=== PATIENT | female | born 1935 | race Caucasian/White ===

== ENCOUNTER → 2016-07-25 | Outpatient (CLI) | payer OTHER, MEDICARE ==
[~2016-07-25] MED LIST: ALLOPURINOL 10100 M1 PO; CIPRO250 M1 PO; COLCHICINE 0.60.6 M2 PO; COLCHICINE PO; COLCRYS0.6 MG PO; COUMADIN 1MG TAB1 M1 PO; COUMADIN 2 MG TA2 M1 PO; DIGITEK125 MC1 PO; FOSAMAX 35 MG35 M1 PO; HYZAAR 50-12.51 TAB PO; LASIX 20 MG TAB20 MG PO; LEVOTHYROXIN0.075 MG PO; LEVOTHYROXINE 0.1 MG PO; LEVOTHYROXINE0.05 MG PO; LEVOXYL75 MCG PO; LOVASTAT10 PO; LOVASTATIN 20 M20 MG PO; NORCO 5-325 TA1 EACH PO; POTASSIUM20 PO; PRESERVISION T1 EACH PO; SYNTHROID75 MCG PO; TOPROL XL25 MG PO; TOPROL XL50 MG PO; TRAMADOL 50 MG50 MG PO; VITAMIN D PO; VITAMIN D1000 UNI1 PO; ZOFRAN ODT4 MG PO
== END ==
LOC: RAD 11:06
DX: Z12.31 Encounter for screening mammogram for malignant neoplasm of breast (principal)

== ENCOUNTER → 2016-08-30 | Outpatient (CLI) | payer OTHER | LOC: RAD 10:27 | DX: J18.9 Pneumonia, unspecified organism (principal) ==

== ENCOUNTER 2016-10-03 09:57 | Inpatient (IN) | payer OTHER ==
[~2016-10-03] VITALS: Ht 157.5 cm; Wt 67.9 kg
--- NOTE | ~2016-10-03 | EKG ---
[address] [place] [address] ELECTROCARDIOGRAM REPORT Name: EDWIGE FOURNIER [facility] Room #: 305-P ADM IN M.R.#: [id number] Admission: 10/03/16 Attend Phys: Alicia Gibson Discharge: Date of : 31 Report #: [id number] THIS REPORT FOR: //name// [facility] ED Test Date: 2016-10-03 Test Time: 10:42:06 Pat Name: EDWIGE FOURNIER Department: Room: [facility] Gender: F Global Lead: [id number] : 1935 Requested By: Usama Linda Order Number: [id number] MD: Denys Muhammad Measurements Intervals [place] Rate: 68 P: 37 [place]: 84 QRS: 82 QRSD: 130 T: 261 QT: 506 QTc: 539 Interpretive Statements Atrial-ventricular dual-paced complexes No further analysis attempted due to paced rhythm Compared to ECG 11/29/2013 08:13:07 No significant changes Electronically Signed On 10-04-2016 8:48:41 CDT by Denys Muhammad [email or web address] <ELECTRONICALLY SIGNED> By: Denys Muhammad MD, [facility] 10/04/16 0848 1042 1042 Denys Muhammad MD, [facility] /EPI
--- NOTE | ~2016-10-03 | S ---
[facility] [address] [place] [address] SURGICAL PATH RPT PROCEDURE Name: JOANN FOURNIER [facility] Room #: 305-P DIS IN M.R.#: [id number] Admission: 10/03/16 Date of : 31 Discharge: 10/06/16 Report #: [id number] Path Case #: [id number] PATHOLOGY REPORT COLLECTION DATE: 10/05/2016 RECEIVED DATE: 10/05/2016 SUBMITTING PHYS: Dr. Leatha Jason OTHER PHYS: Dr. Tay Duncan SPECIMEN(S) RECEIVED: A.Duodenum bx B.Gastric bx C.Bx of gastric polyp D.Polyp at cecum x2 E.Bx of polyp at 10 cm F.Polyp at distal rectum x2 * * * * * * * * * * * * FINAL DIAGNOSIS: A. Small bowel mucosa, duodenum, endoscopic biopsy: - Moderate active peptic duodenitis. - Focal villous blunting present. - Negative for increase in intraepithelial lymphocytes. B. Gastric mucosa, gastric, endoscopic biopsy: - Mild reactive gastropathy with focal active gastritis. - Negative for intestinal metaplasia or atrophy. - Negative for Helicobacter pylori C. Polyp, gastric polyp, endoscopic biopsy: - Fundic gland polyp. - Negative for dysplasia. D. Polyp, cecum, endoscopic biopsy: - Few fragments showing tubular adenoma without high-grade dysplasia (inked blue). - One fragment showing serrated adenoma along with hyperplastic polyp without dysplasia (inked black). E. Polyp, at 10 cm, endoscopic biopsy: - Hyperplastic polyp. - Negative for dysplasia. F. Polyp, at distal rectum, endoscopic biopsy: - Superficial fragments of a tubular adenoma. - Negative for high-grade dysplasia. COMMENT: Helicobacter pylori immunohistochemical stain performed on block B1-negative. (IUV:pit; 10/07/2016) [address] [address] SURGICAL PATH RPT PROCEDURE Name: JOANN FOURNIER Room #: 305-P [facility] IN M.R.#: [id number] Admission: 10/03/16 Date of : 31 Discharge: 10/06/16 Report #: [id number] Path Case #: [id number] PATHOLOGIST: Ysabel Carver M.D. REPORT ELECTRONICALLY SIGNED BY: Ysabel Carver M.D. DATE/TIME: 10/07/2016 14:44 * * * * * * * * * * * * GROSS PATHOLOGY: A. Received in formalin labeled "Joann Fournier, BX duodenum," are 2 segments of mixon soft tissue measuring 0.7 x 0.2 x 0.2 cm in aggregate dimensions and ranging from 0.2 to 0.5 cm in maximum dimension. The specimen is submitted entirely in cassette A1. B. Received in formalin labeled "Joann Fournier, gastric BX," are 2 segments of mixon soft tissue measuring 1.0 x 0.2 x 0.2 cm in aggregate dimensions and ranging from 0.3 to 0.7 cm in maximum dimension. The specimen is submitted entirely in cassette B1. C. Received in formalin labeled "Rodrick Joann Ladonna, BX of gastric polyp," is a segment of mixon soft tissue measuring 0.4 x 0.3 x 0.2 cm in maximum dimension. The specimen is submitted entirely in cassette C1. D. Received in formalin labeled "Joann Fournier Ladonna, polyp at cecum," are 2 polypoid pieces of mixon soft tissue. The first polypoid piece of soft mixon tissue measures 0.9 x 0.7 x 0.6 cm in maximum dimension. The margin is inked black and the tissue is sectioned perpendicular to the margin. The second polypoid piece of soft mixon tissue measures 0.5 x 0.3 x 0.3 cm in maximum dimension. The margin is inked blue and the tissue is sectioned perpendicular to the margin. Everything is submitted in its entirety in cassette D1. E. Received in formalin labeled "ThierrymichealJoann, BX of polyp at 10 cm," is a 0.4 x 0.2 x 0.3 cm polypoid piece of mixon soft tissue. The margin is inked and the tissue is sectioned perpendicular to the margin. There is also a segment of mixon soft tissue measuring 0.3 x 0.2 cm in maximum dimension. Everything is submitted in its entirety in cassette E1. F. Received in formalin labeled "Rodrick Joann Ladonna, polyp at distal rectum," are 8 segments of mixon soft tissue measuring 2.1 x 0.4 x 0.2 cm in aggregate dimensions and ranging from less than 0.1 to 0.4 cm in maximum dimension. The specimen is submitted entirely in cassette F1. (DOUGLAS; 10/06/2016) CLINICAL HISTORY: Gastritis, gastric polyps, cecum polyp INITIAL CPT CODE(S): A; 57116 B; 85116, [address] [address] SURGICAL PATH RPT PROCEDURE Name: ESPERANZAWILMAMICHEALJOANN Room #: 305-P DIS IN M.R.#: [id number] Admission: 10/03/16 Date of : 31 Discharge: 10/06/16 Report #: [id number] Path Case #: [id number] C; [id number] D; [id number] E; [id number] F; [id number] Professional services performed by [facility] at [place] [address], [place] [address] Technical services performed by [facility] at [address] [place] [address], [facility] [address] [address]. [facility] [address] [place] [address] PHONE: [phone] DIRECTOR: Mayur Bautista M.D. * * * END OF REPORT * * *
[2016-10-03 10:19] VITALS: BP 127/42
[2016-10-03] MEDS ORDERED: XARELTO15 MG PO (10:47)
[2016-10-03 10:56] LABS: ABSOLUTE NEUTROPHILS 7.9 thou/uL (1.4-8.2); BASOPHILS 0.8 % (0.0-2.0); EOSINOPHILS 0.7 % (0.0-3.0); HEMATOCRIT 23.5 % (37.0-47.0); MCH 30.6 pg (26.0-34.0); MCHC 34.3 g/dL (28.0-37.0); MCV 89.1 fL (80.0-100.0); MONOCYTES 5.5 % (1.0-8.0); PLATELET COUNT 185 thou/uL (150-400); RBC 2.63 mil/uL (4.20-5.00); RDW 14.9 % (10.5-14.5); WBC 9.9 thou/uL (4.0-11.0)
[2016-10-03 11:09] LABS: CALCIUM 9.6 mg/dL (8.5-10.1); CREATININE 1.6 mg/dL (0.6-1.0); INR 1.3; PROTIME 12.9 Seconds (9.3-11.4)
[2016-10-03 11:11] LABS: ALBUMIN 3.2 g/dL (3.4-5.0); MANUAL DIFF NO; TOTAL BILIRUBIN 0.3 mg/dL (<0.1-1.0); TOTAL PROTEIN 6.2 g/dL (6.4-8.2)
[2016-10-03 13:19] LABS: URINE BILIRUBIN NEGATIVE (Negative); URINE BLOOD 3+ (Negative); URINE COLOR YELLOW; URINE GLUCOSE-RANDOM* NEGATIVE (Negative); URINE KETONES NEGATIVE (Negative); URINE NITRITE NEGATIVE (Negative); URINE PROTEIN (DIPSTICK) NEGATIVE (Negative); URINE UROBILINOGEN 0.2 E.U./dl (0.2-1.0)
[2016-10-03 13:22] VITALS: BP 126/49
[2016-10-03 13:29] LABS: SQUAMOUS 0-3 Few /LPF (0-3); URINE WBC 6-15 Few /HPF (0-5)
[2016-10-03 13:30] LABS: CASTS None Seen /LPF (None Seen); CRYSTALS None Seen /LPF (None Seen); URINE RBC 3-10 Few /HPF (0-2)
[2016-10-03 13:40] VITALS: BP 114/44
[2016-10-03 17:38] VITALS: BP 119/43
[2016-10-03 18:35] LABS: HEMATOCRIT 21.2 % (37.0-47.0); HEMOGLOBIN 7.2 gm/dL (12.0-15.0)
[2016-10-03 20:00] VITALS: BP 105/52
[2016-10-03 22:35] LABS: HEMOGLOBIN 6.1 gm/dL (12.0-15.0)
[2016-10-03 22:36] LABS: HEMATOCRIT 17.8 % (37.0-47.0)
[2016-10-03 23:49] VITALS: BP 100/63; BP 108/36
[2016-10-04 00:15] VITALS: BP 100/63
[2016-10-04 02:30] VITALS: BP 108/36; BP 109/39; BP 109/55
[2016-10-04 05:09] VITALS: BP 109/55
[2016-10-04 06:37] LABS: HEMATOCRIT 26.6 % (37.0-47.0); MCH 30.1 pg (26.0-34.0); MCHC 33.8 g/dL (28.0-37.0); MCV 89.2 fL (80.0-100.0); RBC 2.98 mil/uL (4.20-5.00); RDW 15.4 % (10.5-14.5)
[2016-10-04 06:57] LABS: CALCIUM 8.7 mg/dL (8.5-10.1); CREATININE 1.2 mg/dL (0.6-1.0); POTASSIUM 3.5 mmol/L (3.5-5.1)
[2016-10-04 07:48] VITALS: BP 140/72
[2016-10-04 10:48] LABS: HEMATOCRIT 26.9 % (37.0-47.0); HEMOGLOBIN 9.2 gm/dL (12.0-15.0)
[2016-10-04 14:31] LABS: HEMATOCRIT 25.5 % (37.0-47.0); HEMOGLOBIN 8.6 gm/dL (12.0-15.0)
[2016-10-04 15:30] VITALS: BP 124/53
[2016-10-04 18:31] LABS: HEMATOCRIT 26.4 % (37.0-47.0)
[2016-10-04 19:40] VITALS: BP 134/48
[2016-10-04 22:03] LABS: HEMATOCRIT 27.1 % (37.0-47.0); HEMOGLOBIN 9.1 gm/dL (12.0-15.0)
[2016-10-05 02:33] LABS: HEMATOCRIT 27.3 % (37.0-47.0); HEMOGLOBIN 9.3 gm/dL (12.0-15.0)
[2016-10-05 04:00] VITALS: BP 130/56
[2016-10-05 06:23] LABS: CALCIUM 9.1 mg/dL (8.5-10.1); CREATININE 1.1 mg/dL (0.6-1.0); POTASSIUM 3.5 mmol/L (3.5-5.1)
[2016-10-05 06:24] LABS: HEMATOCRIT 26.7 % (37.0-47.0); HEMOGLOBIN 9.2 gm/dL (12.0-15.0); MCH 30.7 pg (26.0-34.0); MCHC 34.5 g/dL (28.0-37.0); RDW 15.9 % (10.5-14.5); WBC 10.1 thou/uL (4.0-11.0)
[2016-10-05 07:18] VITALS: BP 137/47
[2016-10-05 07:45] VITALS: BP 137/47
[2016-10-05 17:04] VITALS: BP 155/65
[2016-10-05 17:53] LABS: HEMATOCRIT 27.5 % (37.0-47.0); HEMOGLOBIN 9.1 gm/dL (12.0-15.0)
[2016-10-05 19:40] VITALS: BP 100/48
[2016-10-06 00:22] VITALS: BP 100/48
[2016-10-06 03:30] VITALS: BP 116/69
[2016-10-06 05:35] LABS: HEMATOCRIT 27.3 % (37.0-47.0); HEMOGLOBIN 9.1 gm/dL (12.0-15.0)
[2016-10-06 08:00] VITALS: BP 110/50
[2016-10-06] MEDS ORDERED: METOPROLOL SUCC25 M1 PO (10:28)
[2016-10-06] MEDS ORDERED: DUONEB 2.5-0.5 M3 ML INH (10:28)
[2016-10-06] MEDS ORDERED: PROTONIX40 M1 PO (10:29)
[2016-10-06] MEDS ORDERED: LEVOTHYROXIN0.075 MG PO (10:55)
== END 2016-10-06 17:31 | DRG 377 ==
LOC: ER 09:57 → 3N 12:10 → EROBS 12:10 → 3N 13:36
PROVIDERS: Emergency Medicine; Internal Medicine; Internal Medicine Geriatric Medicine; Nurse Practitioner Adult Health
PROC: 30233N1 Transfusion of Nonautologous Red Blood Cells into Peripheral Vein, Percutaneous Approach (ICD-10-PCS; principal; 2016-10-03)
PROC: 0DB98ZX Excision of Duodenum, Via Natural or Artificial Opening Endoscopic, Diagnostic (ICD-10-PCS; 2016-10-05)
PROC: 0DB68ZX Excision of Stomach, Via Natural or Artificial Opening Endoscopic, Diagnostic (ICD-10-PCS; 2016-10-05)
PROC: 0DBP8ZZ Excision of Rectum, Via Natural or Artificial Opening Endoscopic (ICD-10-PCS; 2016-10-05)
PROC: 0DBH8ZZ Excision of Cecum, Via Natural or Artificial Opening Endoscopic (ICD-10-PCS; 2016-10-05)
DX: K26.4 Chronic or unspecified duodenal ulcer with hemorrhage (principal); I50.31 Acute diastolic (congestive) heart failure; N17.0 Acute kidney failure with tubular necrosis; Z96.89 Presence of other specified functional implants; E89.0 Postprocedural hypothyroidism; M10.9 Gout, unspecified; I48.91 Unspecified atrial fibrillation; I48.2 Chronic atrial fibrillation; I11.0 Hypertensive heart disease with heart failure; K21.9 Gastro-esophageal reflux disease without esophagitis; K63.5 Polyp of colon; Z90.49 Acquired absence of other specified parts of digestive tract; Z88.1 Allergy status to other antibiotic agents; Z88.0 Allergy status to penicillin; Z87.891 Personal history of nicotine dependence; Z79.01 Long term (current) use of anticoagulants; Z79.899 Other long term (current) drug therapy
CPT/HCPCS: 10096; 62110; 62900; 70005

== ENCOUNTER → 2016-10-26 | Outpatient (CLI) | payer OTHER ==
[~2016-10-26] MED LIST changes: +DUONEB 2.5-0.5 M3 ML INH; +METOPROLOL SUCC25 M1 PO; +PROTONIX40 M1 PO; +XARELTO15 MG PO
--- NOTE | ~2016-10-26 | P ---
[facility] [address] [place] [address] PROCEDURE REPORT Name: EDWIGE FOURNIER [facility] Room #: [facility] Renay#: [id number] Admission: 10/26/16 Attend Phys: Jean Holt MD Discharge: Date of : 33 Report #: [id number] THIS REPORT FOR: //name// CC: Jean Gallagher Jeffery DATE OF SERVICE: 10/26/2016 DATE OF SERVICE: 10/26/2016 PROCEDURE: M2 capsule endoscopy. INDICATIONS: An 81-year-old with history of atrial fibrillation, anticoagulation, who was admitted to [facility] late September 2016 with anemia and melena. EGD 10/03/2016 found small shallow nonbleeding duodenal bulb ulcers, coffee ground in the stomach. Biopsies were negative for H. Pylori. Colonoscopy to the terminal ileum found coffee grounds in the ileum, few small polyps and rare diverticula. An M2 capsule was recommended due to coffee ground and ileum. The patient ____ a gastric passage time 0 hours 4 minutes and small bowel passage time 1 hour 6 minutes. PROCEDURE INFORMATION AND FINDINGS: Normal M2 capsule endoscopy with an adequate prep. SUMMARY AND RECOMMENDATIONS: Clinical correlation is recommended. Continue ____ risks and benefits of anticoagulation with Cardiology and primary care doctor. <ELECTRONICALLY SIGNED> By: Jean Holt MD 12/06/16 1833 0853 1201 Jean Holt MD /nt
== END | disposition home or self-care (01) ==
LOC: GI 08:25
DX: I48.91 Unspecified atrial fibrillation (principal)

== ENCOUNTER → 2017-04-26 | Outpatient (CLI) | payer OTHER | LOC: RAD 17:07 | DX: J41.0 Simple chronic bronchitis (principal) ==

== ENCOUNTER → 2017-07-31 | Outpatient (CLI) | payer OTHER | LOC: RAD 16:30 | DX: J98.11 Atelectasis (principal); M41.84 Other forms of scoliosis, thoracic region; M47.894 Other spondylosis, thoracic region; Z95.0 Presence of cardiac pacemaker ==

== ENCOUNTER → 2017-08-08 | Outpatient (CLI) | payer OTHER | LOC: RAD 00:44 | DX: Z12.31 Encounter for screening mammogram for malignant neoplasm of breast (principal) ==

== ENCOUNTER → 2017-08-23 | Outpatient (CLI) | payer OTHER | LOC: RAD 07:05 | DX: K21.0 Gastro-esophageal reflux disease with esophagitis (principal); I51.7 Cardiomegaly; J98.11 Atelectasis ==

== ENCOUNTER 2018-01-25 22:54 | Emergency (ER) | payer OTHER ==
[~2018-01-25] VITALS: Ht 157.5 cm; Wt 64.9 kg
[2018-01-25 23:23] LABS: INR 1.7; PROTIME 18.1 Seconds (9.3-11.4)
[2018-01-25] MEDS ORDERED: ALLOPURINOL 10100 M2 PO (23:33)
[2018-01-25] MEDS ORDERED: CRANBERRY425 MG PO (23:33)
[2018-01-25] MEDS ORDERED: KLOR-CON 1010 MEQ PO (23:34)
[2018-01-25] MEDS ORDERED: LASIX 40 MG TAB40 M2 PO (23:34)
[2018-01-25] MEDS ORDERED: OCUVITE TABLET1 EAC1 PO (23:34)
[2018-01-25] MEDS ORDERED: REFRESH TEARS15 ML OPHTHALMIC (23:35)
[2018-01-25] MEDS ORDERED: TYLENOL325 MG PO (23:35)
[2018-01-25] MEDS ORDERED: VITAMIN D1000 UNI1 PO (23:36)
[2018-01-25] MEDS ORDERED: COUMADIN 1MG TAB1 M1 PO (23:37)
[2018-01-26 00:45] VITALS: BP 140/55
== END 2018-01-26 02:10 ==
LOC: ER 22:54
PROVIDERS: Emergency Medicine
DX: S09.90XA Unspecified injury of head, initial encounter (principal); E05.00 Thyrotoxicosis with diffuse goiter without thyrotoxic crisis or storm; I11.0 Hypertensive heart disease with heart failure; I50.9 Heart failure, unspecified; M10.9 Gout, unspecified; I48.91 Unspecified atrial fibrillation; Z95.810 Presence of automatic (implantable) cardiac defibrillator; Z79.01 Long term (current) use of anticoagulants; Z79.899 Other long term (current) drug therapy; Z88.0 Allergy status to penicillin; Z88.1 Allergy status to other antibiotic agents; Z87.891 Personal history of nicotine dependence; W18.30XA Fall on same level, unspecified, initial encounter; Y93.89 Activity, other specified; Y92.89 Other specified places as the place of occurrence of the external cause; Y99.8 Other external cause status

== ENCOUNTER → 2018-08-20 | Outpatient (CLI) | payer OTHER ==
[~2018-08-20] MED LIST changes: +ALLOPURINOL 10100 M2 PO; +CRANBERRY425 MG PO; +KLOR-CON 1010 MEQ PO; +LASIX 40 MG TAB40 M2 PO; +OCUVITE TABLET1 EAC1 PO; +REFRESH TEARS15 ML OPHTHALMIC; +TYLENOL325 MG PO
== END ==
LOC: RAD 01:14
DX: Z12.31 Encounter for screening mammogram for malignant neoplasm of breast (principal)

== ENCOUNTER → 2018-11-15 | Outpatient (CLI) | payer OTHER, MEDICAID | LOC: SPEECH 10:55 → RAD 10:55 | DX: R47.02 Dysphasia (principal); R13.12 Dysphagia, oropharyngeal phase; J98.4 Other disorders of lung; R05 Cough; Z88.8 Allergy status to other drugs, medicaments and biological substances; Z88.0 Allergy status to penicillin ==

== ENCOUNTER → 2018-11-29 | Outpatient (CLI) | payer OTHER, MEDICAID | LOC: CAT 10:33 | DX: J98.4 Other disorders of lung (principal); R91.8 Other nonspecific abnormal finding of lung field; I25.10 Atherosclerotic heart disease of native coronary artery without angina pectoris; R91.1 Solitary pulmonary nodule; J98.11 Atelectasis; J47.9 Bronchiectasis, uncomplicated; M41.84 Other forms of scoliosis, thoracic region; M47.814 Spondylosis without myelopathy or radiculopathy, thoracic region; I71.4 Abdominal aortic aneurysm, without rupture; K76.9 Liver disease, unspecified; N20.0 Calculus of kidney; K76.0 Fatty (change of) liver, not elsewhere classified; I51.7 Cardiomegaly; Z88.8 Allergy status to other drugs, medicaments and biological substances; Z88.0 Allergy status to penicillin; Z95.0 Presence of cardiac pacemaker ==

== ENCOUNTER 2018-12-17 11:50 | Inpatient (IN) | payer OTHER, MEDICAID ==
[~2018-12-17] VITALS: Ht 157.5 cm; Wt 67.6 kg
[2018-12-17 12:08] VITALS: BP 142/113
[2018-12-17 12:54] LABS: HEMOGLOBIN 12.3 gm/dL (12.0-15.0); MCH 29.4 pg (26.0-34.0); MCHC 32.4 g/dL (28.0-37.0); MCV 90.6 fL (80.0-100.0); RBC 4.2 mil/uL (4.20-5.00); RDW 14.8 % (10.5-14.5); WBC 13.7 thou/uL (4.0-11.0)
[2018-12-17 13:04] LABS: ANION GAP 9 mmol/L (7-16); BUN 25 mg/dL (7-18); CALCIUM 10.2 mg/dL (8.5-10.1); CHLORIDE 102 mmol/L (98-107); CO2 28 mmol/L (21-32); CREATININE 1.4 mg/dL (0.6-1.0); GLUCOSE 101 mg/dL (74-106); SODIUM 139 mmol/L (136-145)
[2018-12-17 13:14] LABS: TROPONIN-I <0.06 ng/mL (<0.06)
[2018-12-17] MEDS ORDERED: IPRAT-ALBUT 0.5-3 ML INH (14:17)
[2018-12-17] MEDS ORDERED: MUCINEX FAST-M180 M2 PO (14:19)
[2018-12-17] MEDS ORDERED: OCUVITE TABLET1 EAC1 PO (14:19)
[2018-12-17] MEDS ORDERED: REFRESH TEARS15 ML OPHTHALMIC (14:20)
[2018-12-17] MEDS ORDERED: COUMADIN 1MG TAB1 M1 PO (14:21)
[2018-12-17 15:29] VITALS: BP 125/50
[2018-12-17 15:42] VITALS: BP 117/45
[2018-12-17 16:23] VITALS: BP 108/41
[2018-12-17] MEDS ORDERED: TOPROL XL25 MG PO (19:20)
[2018-12-17 19:22] VITALS: BP 133/61
[2018-12-17] MEDS ORDERED: ALLER-EASE180 MG PO (19:26)
--- NOTE | 2018-12-17 19:47 | NUR ---
pt received from er to room 362 via stretcher, but pt request to ambulate to her bed. pt w/ an unsteady, but balanced and coordinated gait. pt states she uses a wheelchair at her facility, one given and placed in room for use. pt aox4 at this time. pt co soa, on oxygen per nc @ 2lt. pt states she does not wear oxygen at home. pt noted to have a frequent productive cough which does cause her to have intermittent rib pain. pt w/ brief on and requests that we order her more briefs dt her stress incontinence. pt up to c to void and stool this evening. pt w/ a poor to fair appetite for dinner tonight. iv access funtional and w/o issues at this time. family (daughter and son) at bs this evening w/ pt.
[2018-12-17] MEDS ORDERED: REFRESH CLASSI1 EACH OPHTHALMIC (21:55)
[2018-12-17] MEDS ORDERED: OCUVITE ADULT1 EAC1 PO (21:56)
[2018-12-17] MEDS ORDERED: MUCINEX100 MG PO (21:58)
[2018-12-17] MEDS ORDERED: MUCINEX600 MG PO (21:59)
--- NOTE | 2018-12-18 01:08 | NUR ---
patient is alert and oriented. patient up times one. patient on 2lnc (which is not baseline, patient on room air at home). patient uses walker and bsc. patient has a pacemaker.patient is incontient. patient is from [facility]. patient has rt. patients pain is controlled with pain medication. patient is resting comfortably in bed. wcm. patient is progressing to goals. patient sent to [facility] at 2300.
--- NOTE | 2018-12-18 01:46 | NUR ---
PT WAS TRANSFERRED TO THE UNIT FROM IN A STABLE CONDITION.PT ASLEEP IN THE ROOM AT THIS TIME.PT CONT ON 2L/NC.FALL PRECAUTIONS IN PLACE,CALL LIGHT WITHIN REACH.
[2018-12-18 04:48] VITALS: BP 131/59
[2018-12-18 07:20] VITALS: BP 123/74
[2018-12-18 10:17] LABS: D-DIMER 0.3 ug/mLFEU (0.19-0.50); INR 2.3; PROTIME 24.1 Seconds (9.3-11.4)
--- NOTE | 2018-12-18 11:25 | 2DMMODE ---
[facility] [address] [place] [address] 2 D/M-MODE ECHOCARDIOGRAM Name: EDWIGE FOURNIER DEDE Room #: 418-P ADM IN M.R.#: [id number] Admission: 12/17/18 Attend Phys: Alicia Schafer Discharge: Date of : 33 Report #: [id number] THIS REPORT FOR: //name// APPROVED REPORT Study performed: 12/18/2018 10:22:46 EXAM: Comprehensive 2D, Doppler, and color-flow Echocardiogram Patient Location: In-Patient Room #: 418 Status: routine BSA: 1.69 HR: 60 bpm BP: 123/74 mmHg Rhythm: Pacemaker Other Information Study Quality: Adequate Indications Hypertension/HDD SOA, ICD 2D Dimensions RVDd: 44.67 mm IVSd: 10.89 (7-11mm) LVOT Diam: 19.11 (18-24mm) LVDd: 48.45 mm PWd: 11.63 (7-11mm) Ascending Ao: 32.58 (22-36mm) LVDs: 36.99 (25-40mm) Aortic Root: 27.06 mm IVC: 19.00 mm Volumes Left Atrial Volume (Systole) Single Plane 4CH: 110.61 mL Single Plane 2CH: 171.19 mL LA ESV Index: 99.00 mL/m2 Aortic Valve AoV Peak Smith.: 1.78 m/s AO Peak Gr.: 12.72 mmHg LVOT Max P.28 mmHg LVOT Max V: 1.03 m/s RADHA Vmax: 1.66 cm2 Mitral Valve MV Decel. Time: 196.78 ms MV E Max Smith.: 1.34 m/s [facility] [address] [place] [address] 2 D/M-MODE ECHOCARDIOGRAM Name: EDWIGE FOURNIER [facility] Room #: 418-P [facility] IN [facility].#: [id number] Admission: 12/17/18 Attend Phys: Alicia Schafer Discharge: Date of : 33 Report #: [id number] IVRT: 32.30 ms Pulmonary Valve PV Peak Smith.: 1.15 m/s PV Peak Gr.: 5.27 mmHg Tricuspid Valve TR Peak Smith.: 3.62 m/s RAP Estimate: 10.00 mmHg TR Peak Gr.: 52.41 mmHg PA Pressure: 62.00 mmHg Left Ventricle The left ventricle is normal size. There is normal left ventricular wall thickness. The left ventricular systolic function is normal. The left ventricular ejection fraction is within the normal range. LVEF is 60-65%. The diastolic function is abnormal. Right Ventricle The right ventricle is normal size. The right ventricular systolic function is normal. Atria Left atrium is severely dilated. Right atrium is moderately dilated. Aortic Valve The aortic valve is normal in structure. No aortic regurgitation is present. There is no aortic valvular stenosis. Mitral Valve The mitral valve is normal in structure. Mild mitral regurgitation. No evidence of mitral valve stenosis. Tricuspid Valve The tricuspid valve is normal in structure. Mild tricuspid regurgitation. Estimated PAP is 62mmHg. Pulmonic Valve Pulmonic valve is not well visualized. Great Vessels The aortic root is normal in size. The ascending aorta is normal in size. IVC is normal in size and collapses <50% with inspiration. Pericardium There is no pericardial effusion. [facility] [address] [place] [address] 2 D/M-MODE ECHOCARDIOGRAM Name: EDWIGE FOURNIER DEDE Room #: 418-P [facility] IN M.R.#: [id number] Admission: 12/17/18 Attend Phys: Alicia Schafer Discharge: Date of : 33 Report #: [id number] <Conclusion> The left ventricle is normal size. LVEF is 60-65%. Left atrium is severely dilated. Right atrium is moderately dilated. The aortic valve is normal in structure. The mitral valve is normal in structure. Mild mitral regurgitation. The tricuspid valve is normal in structure. Mild tricuspid regurgitation. Estimated PAP is 62mmHg. Pulmonic valve is not well visualized. There is no pericardial effusion. <ELECTRONICALLY SIGNED> By: Abhay Bello MD 12/18/18 1124 1124 1124 Abhay Bello MD /CHLOE
--- NOTE | 2018-12-18 13:29 | NUR ---
VIDEO SWALLOW WAS COMPLETED ON 11/15/18 WHICH R/O ASPIRATION CAUSE FOR CHRONIC COUGH. RECEIVED NEW ORDERS FOR VIDEO THIS AFTERNOON AND AWAITING CLARIFICATION TO WHETHER DR BARGER WANTS A REPEAT STUDY. ST CONSULTED WITH PATIENT'S DAUGHTER DEMOND TO INFORM HER OF RESULTS TO PREVIOUS STUDY AND WILL UPDATE HER ON NEW RESULTS IF REPEAT VIDEO IS DONE.
--- NOTE | 2018-12-18 14:07 | EKG ---
[address] [facility] [place] [address] ELECTROCARDIOGRAM REPORT Name: EDWIGE FOURNIER [facility] Room #: 418-P ADM IN M.R.#: [id number] Admission: 12/17/18 Attend Phys: Elliott Gil MD Discharge: Date of : 33 Report #: [id number] THIS REPORT FOR: //name// [facility] ED Test Date: 2018-12-17 Test Time: 12:22:57 Pat Name: EDWIGE FOURNIER Department: Room: 418 Gender: F Nutrition Services Worker: KALEY : 1935 Requested By: Girma Laguna Order Number: [id number] MD: Judson Brice Measurements Intervals [place] Rate: 59 P: 26 MA: 54 QRS: -83 QRSD: 133 T: 3 QT: 422 QTc: 418 Interpretive Statements Atrial-sensed ventricular-paced complexes Frequent PVCs. No further analysis attempted due to paced rhythm Compared to ECG 10/03/2016 10:42:06 Electronically Signed On 12-18-2018 14:06:54 CDT by Judson Brice [email or web address] <ELECTRONICALLY SIGNED> By: Judson Brice MD 12/18/18 1406 1222 1222 Judson Brice MD /EPI
[2018-12-18 16:00] VITALS: BP 149/59
[2018-12-18 16:43] VITALS: BP 149/49
[2018-12-18 19:02] VITALS: BP 111/44
--- NOTE | 2018-12-18 20:33 | NUR ---
PATIENT ALERT AND ORIENTED WITH FAMILY MEMBERS AT BEDSIDE OFF AND ON THROUGHOUT THE DAY. MARIBEL IS PRN ED RN AT [facility]. SON-IN-LAW IS ED MD. DR. MERCADO AT BEDSIDE AND SPOKE AT LENGTH WITH CONSUELO LÓPEZ REGARDING RESULTS OF CT SCAN. PATIENT REQUEST BRIEF FOR MINOR INCONTINENCE. PATIENT SAT IN RECLINER CHAIR MOST OF THE DAY. PATIENT CONTINUES TO HAVE CHRONIC NON-PRODUCTIVE COUGH AND IS EXPERIENCING RIB PAIN, BUT STATES SHE DOES NOT WANT PAIN MEDS.
[2018-12-19 04:38] VITALS: BP 131/53
--- NOTE | 2018-12-19 05:07 | NUR ---
A/O, calm and cooperative; cough; afebrile; patient was found sweaty during the midnight, gown changed; got up to the bed commode, weak. denied pain, no n/v. lab reviewed. will keep monitoring.
[2018-12-19 05:23] LABS: INR 2.2; PROTIME 23.3 Seconds (9.3-11.4)
[2018-12-19 05:28] LABS: HEMATOCRIT 33.5 % (37.0-47.0); HEMOGLOBIN 11.1 gm/dL (12.0-15.0); MCHC 33.1 g/dL (28.0-37.0); MCV 90.7 fL (80.0-100.0); RBC 3.7 mil/uL (4.20-5.00); RDW 15.1 % (10.5-14.5); WBC 8.4 thou/uL (4.0-11.0)
[2018-12-19 05:34] LABS: CALCIUM 9.2 mg/dL (8.5-10.1); CREATININE 1.4 mg/dL (0.6-1.0); POTASSIUM 3.8 mmol/L (3.5-5.1)
[2018-12-19 08:10] VITALS: BP 144/63
--- NOTE | 2018-12-19 10:55 | NUR ---
PT A&OX4, IV INTACT IN L FA. AMBULATES WITH WALKER AND ASSIST X1. NON PRODUCTIVE LOOSE COUGH NOTED, DENIES PAIN. RECEIVING BREATHING TREATMENTS, PO TESSLON PEARLS FOR COUGH, WARM BROTH SEEMS TO EASE THE COUGH. WILL CONT POC.
--- NOTE | 2018-12-19 11:01 | NUR ---
VIDEO SWALLOW WILL BE PERFORMED AT 1130.
--- NOTE | 2018-12-19 12:15 | NUR ---
Case opened to follow for dc planning.Chart reviewed and case discussed with the care team. Groundskeeper visited with the pt at bedside and the admissions liason at [facility]. The pt is a fci care resident at [facility]. She has lived there several years. She walks with a rwalker and is normally not on o2. They are holding her room for her return. Pt is being treated for pneumonia and evaluated by PT/OT/ST. Pt may benefit from a snf stay for continued therapies at the [facility]. They are checking her skilled days with her [employer] Medicare plan. She will need ins auth. Dc buyer planner to fax clinical update. The pt is anticipating return to [facility] at dc and is agreeable to therapy. She indicates her son Dandre and dtr Kasandra are her primary contacts. She also listed her two other dtrs Jacqui and keern to get information. She has indicates her spouse and another son have . Cm role introduced. No family here at this time. Will follow and arrange for her return to [facility] when medically ready.
--- NOTE | 2018-12-19 12:50 | H ---
[facility] [place] [address] HISTORY AND PHYSICAL Name: EDWIGE FOURNIER [facility] Room #: 418-P ADM IN M.R.#: [id number] Admission: 12/17/18 Attend Phys: Elliott Gil MD Discharge: Date of : 33 Report #: [id number] THIS REPORT FOR: //name// CC: Alexey Gil DATE OF SERVICE: 12/17/2018 CHIEF COMPLAINT: Cough. HISTORY OF PRESENT ILLNESS: The patient is an 83-year-old female who was admitted to the Emergency Room with shortness of breath and worsening cough. She has had a chronic cough for a number of weeks, which has increased over the last few days. She has now developed shortness of breath and has had productive sputum. She describes white to yellow in color. She does not typically wear oxygen, but was slightly hypoxic in the ER and required oxygen supplement. She was seen in urgent care about a month ago for similar problems with a negative chest x-ray by report. Her family reports that she has had a chronic cough of varying severity and intensity and occurrence for several years without any definitive diagnosis. She has recently undergone ENT and pulmonary evaluation without a diagnosis. PAST MEDICAL HISTORY: Pacemaker and ICD implant; chronic congestive heart failure; AFib; history of ventricular fibrillation with arrest; Graves' disease with partial thyroidectomy, now on thyroid replacement. PAST SURGICAL HISTORY: As above. FAMILY HISTORY: Noncontributory. SOCIAL HISTORY: She lives at home. There is a remote tobacco history, but none in recent years. No chronic alcohol use. ALLERGIES: PENICILLIN. MEDICATIONS: Allopurinol, Lasix, potassium, Tylenol, DuoNeb, Mucinex, Coumadin, metoprolol, Levoxyl. REVIEW OF SYSTEMS: Other than cough and complaints of chest wall muscle pain, denies headache, fever, chills, nausea, vomiting, diarrhea, constipation, dysuria, syncope. OBJECTIVE: VITAL SIGNS: Temperature 36.5, pulse 50, respirations 20, blood pressure 123/74, O2 sat 94% on 2 liters. GENERAL: She was awake and alert, coughing uncontrollably. [facility] [address] [place] [address] HISTORY AND PHYSICAL Name: EDWIGE FOURNIER [facility] Room #: 418-P [facility] IN .R.#: [id number] Admission: 12/17/18 Attend Phys: Elliott Gil MD Discharge: Date of : 33 Report #: [id number] HEAD AND NECK: Unremarkable. LUNGS: There is some upper airway wheezing and congestion. HEART: Regular, no murmur. ABDOMEN: Protuberant, soft, normoactive bowel sounds. EXTREMITIES: No edema. NEUROLOGIC: Cranial nerves intact. Global strength about 4/5 throughout. LABORATORY REVIEW: INR is 2.3. White count was 13. Creatinine 1.4, calcium was 10.2. BNP was 2400. Echo reveals normal left ventricular function. Chest x-ray showed clear lung agustin. ASSESSMENT: 1. Community-acquired pneumonia. 2. Atrial fibrillation. 3. Chronic anticoagulation. 4. Chronic congestive heart failure. 5. Chronic cough. PLAN: Given the slightly elevated white count and what sounds to be increasing symptoms last several weeks, we will continue empiric treatment for pneumonia with antibiotics. Dr. Cline has assessed her. I have asked for a video swallow to rule out recurrent aspiration, although without any significant lower lobe infiltrate on x-ray, this may be less likely of a scenario. Wonder if there is some type of asthma variant trigger here or chronic acid reflux as well. We will continue the inpatient workup as she is still requiring some low dose oxygen at this point and has failed outpatient treatment. <ELECTRONICALLY SIGNED> By: Montana Monk MD 12/19/18 1250 1244 1315 Montana Monk MD /nt
--- NOTE | 2018-12-19 16:33 | NUR ---
PT RESIDES AT [facility] FAXED CLINICAL UPDATE TO FACILITY SPOKE WITH WILLIAM IN ADM SHE RECEIVED UPDATE ALSO LET HER KNOW POSS SKILLED STAY AT DC. DCP TO FOLLOW.
[2018-12-19 18:53] VITALS: BP 145/61
[2018-12-20 03:48] VITALS: BP 193/84
--- NOTE | 2018-12-20 04:00 | NUR ---
ASSUMED CARE AT 1900. PT ALERT BUT CONFUSED. PERSISTENT COUGH. DENIES PAIN. ON 02 2L NC. PT CONFUSED ABOUT HER BELONGINGS AND MOVING OF UNITS. PT ASSURED OF HER SAFETY. WILL CONTINUE TO MONITOR PT AND FOLLOWING POC.
[2018-12-20 07:48] VITALS: BP 182/69
--- NOTE | 2018-12-20 13:22 | NUR ---
PT A&OX3-4 CONFUSED AT TIMES ABOUT HER BELONGINGS AND FRIENDS AT [facility]. PERSISTANT COUGH MOSTLY NON PRODUCTIVE. IV INTACT IN L FA. ASSURED PT SHE WILL RETURN TO FRIENDS AND BELONGINGS AFTER HER CARE HERE. PT APPEARS TO UNDERSTAND. WILL CONT POC.
[2018-12-20 16:30] VITALS: BP 182/65
[2018-12-20 19:10] VITALS: BP 166/63
[2018-12-21 03:15] VITALS: BP 171/70
--- NOTE | 2018-12-21 05:09 | NUR ---
Assumed pt care at 1900. A/OX4 with forgetfulness noted. Pt has spells of dry coughs denies need to take PRN Guiafenessin every time she's prompted to. Up with assist of 1 RW/GB. Pt has stress incontinence,incontinence dermatitis noted on groin. Antifungal cream ordered and applied,will update day shift nurse on findings. Resting w/o distress noted,O2 on @ 2L/NC. Fall precautions in place, will continue to monitor pt.
[2018-12-21 06:07] LABS: HEMATOCRIT 35.7 % (37.0-47.0); HEMOGLOBIN 11.6 gm/dL (12.0-15.0); MCH 29.5 pg (26.0-34.0); MCHC 32.4 g/dL (28.0-37.0); MCV 91.1 fL (80.0-100.0); RBC 3.92 mil/uL (4.20-5.00); RDW 14.9 % (10.5-14.5); WBC 10.4 thou/uL (4.0-11.0)
[2018-12-21 06:28] LABS: CALCIUM 9.3 mg/dL (8.5-10.1); POTASSIUM 3.4 mmol/L (3.5-5.1)
[2018-12-21 06:37] LABS: PROTIME 35.9 Seconds (9.3-11.4)
[2018-12-21 06:39] LABS: INR 3.5
[2018-12-21 08:35] VITALS: BP 152/75
[2018-12-21 10:42] VITALS: BP 152/75
--- NOTE | 2018-12-21 10:53 | HC ---
[facility] [place] [address] CONSULTATION Name: EDWIGE FOURNIER DEDE Room #: 436-P [facility] IN M.R.#: [id number] Admission: 12/17/18 Attend Phys: Elliott Gil MD Discharge: Date of : 33 Report #: [id number] THIS REPORT FOR: //name// CC: Alexey Gil DATE OF SERVICE: 12/20/2018 REASON FOR CONSULTATION: Chronic cough. HISTORY OF PRESENT ILLNESS: The patient is a pleasant 83-year-old female who we were well acquainted with through previous evaluations in our ENT clinic. She presented to the Emergency Room a couple days ago with increasing dyspnea and worsening cough, which she describes as productive in nature. While in the Emergency Room, she was found to be slightly hypoxic and required oxygen supplementation. I was asked to see her to further help in evaluation of her chronic cough. A previous evaluation with her included multiple upper airway endoscopies, which have never found any pathology. There has been no objective findings of sinusitis, rhinitis, excessive postnasal drainage, laryngeal pathology and she has had previous normal chest x-rays and at least 2 previous normal swallow studies without evidence of aspiration. She has also not improved with the use of cough suppressants and with treatment for gastroesophageal reflux disease. She recently had a swallowing study done yesterday, the results of which were reviewed from the speech therapist notes. Per speech therapy, she did not feel that the aspiration event was significant enough to warrant any particular precautions in airway during meals, but did warrant a change in her diet. In discussion with the patient today, she feels her cough is slightly more frequent and little bit more harsh in the last couple of weeks. Otherwise, she feels fine. PAST MEDICAL HISTORY: Includes congestive heart failure, previous ICD and pacemaker implant, history of ventricular fibrillation in the past, history of Graves' disease. PREVIOUS SURGICAL HISTORY: Includes adenotonsillectomy and appendectomy. SOCIAL HISTORY: Previous smoker, not for many years. FAMILY HISTORY: Noncontributory aside from history of known heart disease. MEDICATIONS: Reviewed on her hospital chart. PHYSICAL EXAMINATION: She was examined in her hospital bed. She is alert and cooperative. She did not appear to be dyspneic. She is on nasal O2 cannula at 2 liters. Examination of the face was unremarkable. Palpation of the anterior neck was normal. Examination of the oral cavity reveals dry oral mucosa. [facility] [address] [place] [address] CONSULTATION Name: EDWIGE FOURNIER [facility] Room #: 436-P [facility] IN .R.#: [id number] Admission: 12/17/18 Attend Phys: Elliott Gil MD Discharge: Date of : 33 Report #: [id number] structural abnormalities were otherwise observed aside from surgically absent tonsils. Oropharynx, pharyngeal mucosa is very dry. Examination of the nares reveals bilateral anterior crusting. IMAGING: Flexible laryngoscopy was performed through the left naris (see procedure report). ASSESSMENT: 1. Community-acquired pneumonia, presently being treated. 2. History of chronic atrial fibrillation, congestive heart failure. 3. History of chronic cough. RECOMMENDATIONS: still do not identify an upper aerodigestive reason for her chronic cough. This is the first video swallow that she has demonstrated even any potential for minor aspiration and I would agree with speech therapist's recommendations at this standpoint. I do not have any other additional treatments I will offer from an ENT standpoint and would defer to Pulmonology for further treatment and evaluations for her cough. Thank you for this consultation. PROCEDURE NOTE: Flexible laryngoscopy performed through a left anesthetized nares, which was anesthetized with topical tetracaine and Afrin. The scope was advanced through the nares and the nasopharynx and oropharynx and hypopharynx. Visualized structures include the anterior nares, inferior middle turbinates, the nasopharyngeal mucosa, oropharyngeal mucosa, base of tongue, vallecula, true vocal cords in postcricoid region. Pertinent findings noted was extremely dry nasopharyngeal, oropharyngeal and hypopharyngeal mucosa. There is noted to be some thick stringy mucus in the medial hypopharynx that the patient inadequately clears due to what appears to be an inadequate cough as she clearly senses the mucus is stringing across the glottic opening. The scope was withdrawn. The patient tolerated the procedure well. <ELECTRONICALLY SIGNED> By: Royce Santizo MD 12/21/18 1053 1352 0119 Royce Santizo MD /nt
[2018-12-21] MEDS ORDERED: CEFUROXIME500 MG PO (11:42)
[2018-12-21] MEDS ORDERED: PULMICORT0.5 MG/22 INH (11:42)
[2018-12-21] MEDS ORDERED: BENZONATATE100 MG PO (11:42)
[2018-12-21] MEDS ORDERED: PREDNISONE 20 M20 M1 PO (11:42)
[2018-12-21] MEDS ORDERED: PROTONIX 20 MG20 M1 PO (11:42)
[2018-12-21] MEDS ORDERED: COUMADIN 1MG TAB1 M1 PO ×2 (11:42→11:49)
--- NOTE | 2018-12-21 13:25 | NUR ---
PT DISCHARGING TODAY TO [facility] FAXED DC ORDERS/SUMMARY TO FACILITY SPOKE WITH CHIVO IN ADM SHE RECEIVED DC ORDERS AND ARRANGED TRANSPORT BY [facility] FOR 1430. NOTIFIED PT'S SON OF DC AND TIME OF TRANSPORT. UNIT NOTIFIED AND CHART COPY PER US. RN TO CALL REPORT TO [phone].
--- NOTE | 2018-12-21 15:51 | NUR ---
ASSUMED CARE OF PATIENT AT 0715, PATIENT ALERT AND ORIENTED BUT FORGETFUL. PATIENT DENIES PAIN. PATIENT UP WITH ASSIST X 2 WITH GAIT BELT AND WALKER. O2 AT 1 LITER/NC. PATIENT CONTINUES TO COUGH, PRN COUGH SYRUP PRIOR TO DISCHARGE, RECEIVED BREATHING TREATMENTS SCHEDULED, BILATERAL LUNGS DIMINISHED. LEFT FOREARM IV IN PLACE, REMOVED PRIOR TO DISCHARGE BACK TO [facility]. KERI HODGES VIDEO SWALLOW X 2, NECTARD THICK LIQUIDS, CHOPPED MEATS. BILATERAL GROIN REDNESS, ANTIFUGAL CREAM APPLIED. REPORT GIVEN TODAO/RN AT THE FACILITY. ALL DISCHARGE PAPERWORK AND ALL PERSONAL BELONGINGS SENT WITH THE PATIENT.
--- NOTE | 2018-12-25 14:38 | D ---
[facility] [place] [address] [place] [address] DISCHARGE SUMMARY Name: EDWIGE FOURNIER DEDE Room #: 436-P [facility] IN M.R.#: [id number] Admission: 12/17/18 Attend Phys: Elliott Gil MD Discharge: 12/21/18 Date of : 33 Report #: [id number] THIS REPORT FOR: //name// CC: Alexey Gil FINAL DIAGNOSES: 1. Chronic obstructive pulmonary disease exacerbation. 2. Chronic diastolic heart failure. 3. Chronic cough. 4. Atrial fibrillation. 5. Chronic anticoagulation. HOSPITAL COURSE: The patient was admitted with a chronic cough. Initial working assessment was community-acquired pneumonia; however, there really was not much on x-ray to suggest significant infection. She was treated with empiric antibiotics, steroids, and nebulized treatment. She was followed by the Pulmonary Service. Speech therapy saw her. There was a suggestion of thin liquid aspiration and she was placed on a thickener. ENT saw her in consultation and performed a bedside evaluation. Please see Dr. Santizo's separate note, but there were no pertinent pathological findings to explain her chronic cough with a suggestion of some retained mucus that she was having a hard time clearing and perhaps mild thin liquid aspiration; however, she was just treated conservatively. She had no other interval complications. PHYSICAL EXAMINATION: GENERAL: On the day of discharge, vital signs were stable and she has been walking the halls with physical therapy. VITAL SIGNS: Temperature 36.9, pulse 50, respirations 20, blood pressure 152/75, O2 sat 94% on 2 liters. LUNGS: Clear, but she had a cough. HEART: Regular. ABDOMEN: Soft, normoactive bowel sounds. EXTREMITIES: No edema. DISPOSITION: She will return to [facility] with a diet as tolerated with mechanical soft and nectar thick liquids. INR in 3 days. PT, OT, ST. Meds will be Coumadin 1 mg a day, her other home medicines Ceftin for 7 days and a prednisone taper for 10 days. She will continue nebulized treatments and we have added Protonix and Pulmicort inhaler b.i.d. She will continue DNR status. <ELECTRONICALLY SIGNED> By: Montana Monk MD 12/25/18 1438 1148 1240 Montana Monk MD /nt
== END 2018-12-21 15:07 | DRG 189 ==
LOC: ER 11:50 → 4E 14:23 → EROBS 14:23 → 3W 14:23 → 4E 12-18 01:01 → 4S 12-19 13:27
PROVIDERS: Emergency Medicine; Internal Medicine Geriatric Medicine; Pediatrics; ADMIT Internal Medicine
PROC: 0CJS8ZZ Inspection of Larynx, Via Natural or Artificial Opening Endoscopic (ICD-10-PCS; principal; 2018-12-17)
DX: J96.01 Acute respiratory failure with hypoxia (principal); I50.33 Acute on chronic diastolic (congestive) heart failure; J15.9 Unspecified bacterial pneumonia; J18.9 Pneumonia, unspecified organism; I13.0 Hypertensive heart and chronic kidney disease with heart failure and stage 1 through stage 4 chronic kidney disease, or unspecified chronic kidney disease; J44.1 Chronic obstructive pulmonary disease with (acute) exacerbation; E89.0 Postprocedural hypothyroidism; M10.9 Gout, unspecified; R91.1 Solitary pulmonary nodule; J98.4 Other disorders of lung; I48.91 Unspecified atrial fibrillation; N18.9 Chronic kidney disease, unspecified; Z95.0 Presence of cardiac pacemaker; Z90.49 Acquired absence of other specified parts of digestive tract; Z88.1 Allergy status to other antibiotic agents; Z88.0 Allergy status to penicillin; Z87.891 Personal history of nicotine dependence; Z79.01 Long term (current) use of anticoagulants
CPT/HCPCS: 10080; 10084; 10195

== ENCOUNTER 2019-01-18 10:48 | Inpatient (IN) | payer OTHER, MEDICAID ==
[~2019-01-18] VITALS: Ht 157.5 cm; Wt 61.4 kg
[~2019-01-18 10:48] MED LIST changes: +ALLER-EASE180 MG PO; +BENZONATATE100 MG PO; +CEFUROXIME500 MG PO; +IPRAT-ALBUT 0.5-3 ML INH; +MUCINEX FAST-M180 M2 PO; +MUCINEX100 MG PO; +MUCINEX600 MG PO; +OCUVITE ADULT1 EAC1 PO; +PREDNISONE 20 M20 M1 PO; +PROTONIX 20 MG20 M1 PO; +PULMICORT0.5 MG/22 INH; +REFRESH CLASSI1 EACH OPHTHALMIC
[2019-01-18 11:24] LABS: ABSOLUTE NEUTROPHILS 4.7 thou/uL (1.4-8.2); BASOPHILS 0.5 % (0.0-2.0); EOSINOPHILS 2.7 % (0.0-3.0); HEMATOCRIT 40.3 % (37.0-47.0); HEMOGLOBIN 13.1 gm/dL (12.0-15.0); LYMPHOCYTES 16.9 % (24.0-44.0); MCH 29.4 pg (26.0-34.0); MCHC 32.7 g/dL (28.0-37.0); MCV 89.9 fL (80.0-100.0); MONOCYTES 5.9 % (1.0-8.0); PLATELET COUNT 199 thou/uL (150-400); RBC 4.47 mil/uL (4.20-5.00); RDW 15.3 % (10.5-14.5); WBC 6.4 thou/uL (4.0-11.0)
[2019-01-18 11:37] LABS: ANION GAP 7 mmol/L (7-16); BUN 17 mg/dL (7-18); CALCIUM 10.1 mg/dL (8.5-10.1); CHLORIDE 103 mmol/L (98-107); CO2 29 mmol/L (21-32); CREATININE 1.3 mg/dL (0.6-1.0); GLUCOSE 109 mg/dL (74-106); POTASSIUM 3.7 mmol/L (3.5-5.1); SODIUM 139 mmol/L (136-145)
[2019-01-18 11:45] LABS: APTT 33.9 Seconds (24.5-32.8); PROTIME 21.1 Seconds (9.3-11.4)
[2019-01-18 11:46] LABS: ALBUMIN 3.5 g/dL (3.4-5.0); SGOT 21 U/L (15-37); SGPT 13 U/L (30-65); TOTAL BILIRUBIN 0.5 mg/dL (<0.1-1.0); TOTAL PROTEIN 7.3 g/dL (6.4-8.2); TROPONIN-I <0.06 ng/mL (<0.06)
[2019-01-18 16:10] VITALS: BP 141/67
[2019-01-18 16:14] VITALS: BP 141/67
[2019-01-18 17:45] VITALS: BP 167/75
--- NOTE | 2019-01-18 19:03 | NUR ---
PT CARE ASSUMED APPROX 1745. ASSESSMENTS CHARTED. DENIES PAIN AND SOA. VSS. SR ON MONITOR SOMETIMES AFIB. ARRIVED TO UNIT WITH SON. SON HELPED PT COMPLETE ADMISSION. PT HAS S/T EVAL BUT AFTER HRS NO ONE PRESENT TO COMPLETE. WITH PT HAVING CHRONIC COUGH THIS NURSE WAS UNCOMFORTABLE WITH BEDSIDE NURSE SWALLOW EVAL. DR BARGER WAS CALLED REGARDING THIS AND BP. NEW ORDERS FOR BOTH. PT AND SON DENY QUESTIONS AND CONCERNS REGARDING POC. PT TOLERATING POC. NO DISTRESS NOTED.
[2019-01-18 19:43] VITALS: BP 168/59
[2019-01-19] VITALS: BP 147/82
[2019-01-19 04:00] VITALS: BP 174/81
--- NOTE | 2019-01-19 04:20 | NUR ---
1900, pt alert and oriented. denies pain. Bp slightly elevated, metoprolol x 1 given. still reports facial numbness. Pt has a chronic dry cough. Reported mild numbness in her feet. equal moderate arm and leg strength. pt currently stable. Will continue to monotor.
--- NOTE | 2019-01-19 07:43 | H ---
[facility] [place] [address] [place] [address] HISTORY AND PHYSICAL Name: EDWIGE FOURNIER Room #: 201-P ADM IN M.R.#: [id number] Admission: 01/18/19 Attend Phys: Elliott Gil MD Discharge: Date of : 33 Report #: [id number] THIS REPORT FOR: //name// CC: Alexey Gil CHIEF COMPLAINT: Right facial weakness. HISTORY OF PRESENT ILLNESS: The patient is an 83-year-old female who came to the Emergency Room with some facial issues. Initially, she was complaining of weakness of the right side of her face including the inability to close her right eye or lift her right eyebrow. Her daughter is a nurse, also noted that she has some down turning at the right corner of her mouth. The patient was also complaining of some left-sided facial numbness. She thought symptoms began about 8:45 this morning while eating breakfast. Her family says that she has complained of numbness in her feet previously and weakness and maybe even some facial numbness. Both her daughter and son are at the bedside and they seem to think that those complaints are chronic. PAST MEDICAL HISTORY: Pacemaker implant with ICD, history of Graves' disease, partial thyroidectomy, hypertension, COPD, history of ventricular fibrillation, cardiac arrest, chronic congestive heart failure, atrial fibrillation. She was hospitalized last month for COPD exacerbation and chronic cough. PAST SURGICAL HISTORY: As above. FAMILY HISTORY: Noncontributory. SOCIAL HISTORY: I believe she lives at [facility]. No current alcohol or tobacco use. I believe there is smoking previously. ALLERGIES: None. MEDICATIONS: Multivitamin, DuoNeb, vitamin D, Lasix, Mucinex, Brook, metoprolol, potassium, allopurinol, warfarin, Protonix, Pulmicort, Levoxyl and she completed a course of prednisone and Ceftin. REVIEW OF SYSTEMS: Denies chest pain, shortness of breath, abdominal pain, nausea, vomiting, diarrhea, constipation, dysuria, syncope. OBJECTIVE: VITAL SIGNS: Pulse 66, respirations 13, blood pressure 164/58, O2 sat 98%. GENERAL: She is awake and alert. HEAD AND NECK: There is a right-sided facial weakness. She is unable to close the right eye, or lift the right eyebrow. There is some down turning at the right corner of the mouth. LUNGS: She has a coarse cough. [address] [address] HISTORY AND PHYSICAL Name: EDWIGE FOURNIER Room #: 201-P [facility] IN .R.#: [id number] Admission: 01/18/19 Attend Phys: Elliott Gil MD Discharge: Date of : 33 Report #: [id number] HEART: Regular. ABDOMEN: Soft. Normal bowel sounds. EXTREMITIES: 1+ edema. NEUROLOGIC: She moves all extremities equally. LABORATORY DATA: On lab review, CBC and CMP were normal. Troponin negative. INR was 2. Chest x-ray shows probable atelectasis, chronic degenerative changes of the shoulders. CT head was negative for acute stroke or bleed. ASSESSMENT: 1. 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 2. Chronic obstructive pulmonary disease. 3. Atrial fibrillation. 4. Chronic anticoagulation. PLAN: She is admitted to the hospital and being assessed by Neurology. She is unable to have an MRI due to the pacemaker defibrillator device. Symptomatic treatment for now. She has requested a DNR status. <ELECTRONICALLY SIGNED> By: Montana Monk MD 01/19/19 0743 1642 1720 Montana Monk MD /nt
--- NOTE | 2019-01-19 07:58 | NUR ---
OBVIOUS PALSY. AAOX4. ANGRY ABOUT LAST EVENING'S DINNER TRAY, STATING SHE DID NOT RECEIVE ONE. I ENSURED A PROPER BREAKFAST TRAY; DINNER LAST EVENING WAS NOT PROPERLY ORDERED. NONETHELESS, SHE TOLD ME TO GET OUT OF THE ROOM AND SHE DOESN'T WANT ANYTHING FROM ME. ALSO RUDE TO THE PHYSICIAN. FALL PRECAUTIONS IN PLACE. VPACED PER TELE. WILL CONTINUE TO MONITOR.
[2019-01-19 08:15] VITALS: BP 155/95
[2019-01-19 12:02] VITALS: BP 143/69
[2019-01-19 13:57] LABS: URINE BILIRUBIN NEGATIVE (Negative); URINE BLOOD 1+ (Negative); URINE CLARITY CLEAR; URINE COLOR YELLOW; URINE GLUCOSE-RANDOM* NEGATIVE (Negative); URINE KETONES NEGATIVE (Negative); URINE NITRITE-REFLEX NEGATIVE (Negative); URINE PROTEIN (DIPSTICK) NEGATIVE (Negative); URINE SPECIFIC GRAVITY 1.015 (1.005-1.035); URINE UROBILINOGEN 0.2 E.U./dl (0.2-1.0)
[2019-01-19 13:59] LABS: URINE LEUKOCYTES-REFLEX 2+ (Negative)
[2019-01-19 14:09] LABS: CASTS None Seen /LPF (None Seen); MUCUS 0-3 Light strn/LPF (None Seen); SQUAMOUS 4-10 Moderate /LPF (0-3)
[2019-01-19 14:10] LABS: BACTERIA-REFLEX 1-9 Few /HPF (None Seen); CRYSTALS None Seen /LPF (None Seen); URINE RBC 3-10 Few /HPF (0-2)
[2019-01-19 15:38] VITALS: BP 140/69
--- NOTE | 2019-01-19 18:34 | NUR ---
ASSUMED CARE AT 1300, SHIFT ASSESMENT DONE, MEDS GIVEN, VSS. DENIES PAIN, NASUEA, VOMITING. VPACED/AVPACED ON THE MONITO, ROOM AIR. WILL CONTINUE TO ASSESS AND ASSIST WITH ADLs NEEDED.
[2019-01-19 19:03] VITALS: BP 144/68
[2019-01-20 04:30] VITALS: BP 152/89
--- NOTE | 2019-01-20 07:35 | NUR ---
ASSUME CARE 1900. PT/VITALS STABLE. INTERMITTENT RIGHT SIDED FACIAL PAIN BUT TOLERABLE. UP WITH ASSISTANE TO BEDSIDE CPOMMODE. MODERATE TOLERANCE TO ACTIVITY. PROGRESSING MODERATELY TO PLAN OF CARE. ASSESSMENT CHARTED. PLAN IS FOR PT TO HAVE E-STIM TREATMENT DONE OUTPATIENT FOR FACIAL PAIN. WILL CONTINUE TO MONITOR AND FOLLOW WITH POC
[2019-01-20 08:21] VITALS: BP 156/67
[2019-01-20 08:39] VITALS: BP 156/67
[2019-01-20] MEDS ORDERED: METOPROLOL SUCC50 MG PO (10:11)
[2019-01-20] MEDS ORDERED: COUMADIN 1MG TAB1 M1 PO (10:11)
[2019-01-20] MEDS ORDERED: PREDNISONE 20 M20 M1 PO (10:12)
--- NOTE | 2019-01-20 10:32 | NUR ---
ASSUMED CARE AT 0700, SHIFT ASSESSMENT DONE, MEDS GIVEN, VSS. DENIES PAIN, NAUSEA, VOMITING. ROOM AIR. ATE BREAKFAST, UP WITH STANDBY. DISCHARGE ORDER RECEIVED, WILL GET IN TOUCH WITH VIJI PULIDO ABOUT DISCHARGE.
--- NOTE | 2019-01-20 11:20 | EKG ---
[address] [address] ELECTROCARDIOGRAM REPORT Name: EDWIGE FOURNIER Room #: 201-P ADM IN M.R.#: [id number] Admission: 01/18/19 Attend Phys: Elliott Gil MD Discharge: Date of : 33 Report #: [id number] THIS REPORT FOR: //name// [facility] ED Test Date: 2019-01-18 Test Time: 11:32:25 Pat Name: EDWIGE FOURINER Department: Room: [facility] Gender: F Flow Worker: CHUYITA : 1935 Requested By: Girma Laguna Order Number: [id number] MD: Judson Brice Measurements Intervals [place]ora Rate: 60 P: 0 VA: 65 QRS: -84 QRSD: 112 T: 8 QT: 376 QTc: 376 Interpretive Statements Ventricular-paced rhythm No further analysis attempted due to paced rhythm Compared to ECG 12/17/2018 12:22:57 Atrial-sensed ventricular-paced complex(es) or rhythm no longer present Ventricular premature complex(es) no longer present Electronically Signed On 01-20-2019 11:19:50 [employer]GER [employer] by Judson Brice [email or web address] <ELECTRONICALLY SIGNED> By: Judson Brice MD 01/20/19 1119 1132 1132 Judson Brice MD /EPI
== END 2019-01-20 17:23 | DRG 74 ==
LOC: ER 10:48 → EROBS 12:16 → 2N 17:06
PROVIDERS: Emergency Medicine; ADMIT Internal Medicine
DX: G51.0 Bell's palsy (principal); I48.91 Unspecified atrial fibrillation; I11.0 Hypertensive heart disease with heart failure; I50.9 Heart failure, unspecified; M10.9 Gout, unspecified; J44.9 Chronic obstructive pulmonary disease, unspecified; I25.2 Old myocardial infarction; Z90.49 Acquired absence of other specified parts of digestive tract; Z95.810 Presence of automatic (implantable) cardiac defibrillator; Z87.442 Personal history of urinary calculi; Z79.01 Long term (current) use of anticoagulants
CPT/HCPCS: 10081

== ENCOUNTER → 2019-04-08 | Outpatient (CLI) | payer OTHER ==
[~2019-04-08] MED LIST changes: +METOPROLOL SUCC50 MG PO
== END ==
LOC: SJCVC 11:15
DX: Z51.81 Encounter for therapeutic drug level monitoring (principal); I48.0 Paroxysmal atrial fibrillation; I42.9 Cardiomyopathy, unspecified; I25.10 Atherosclerotic heart disease of native coronary artery without angina pectoris; I50.32 Chronic diastolic (congestive) heart failure; E78.5 Hyperlipidemia, unspecified; Z79.01 Long term (current) use of anticoagulants; Z95.810 Presence of automatic (implantable) cardiac defibrillator

== ENCOUNTER → 2019-04-22 | Outpatient (CLI) | payer OTHER | LOC: SJCVC 10:53 | DX: Z51.81 Encounter for therapeutic drug level monitoring (principal); I48.0 Paroxysmal atrial fibrillation; I42.9 Cardiomyopathy, unspecified; I25.10 Atherosclerotic heart disease of native coronary artery without angina pectoris; I50.32 Chronic diastolic (congestive) heart failure; E78.5 Hyperlipidemia, unspecified; Z79.01 Long term (current) use of anticoagulants ==

== ENCOUNTER → 2019-05-17 | Outpatient (CLI) | payer OTHER | LOC: SJCVC 09:45 | DX: Z45.02 Encounter for adjustment and management of automatic implantable cardiac defibrillator (principal); R94.31 Abnormal electrocardiogram [ECG] [EKG]; I42.9 Cardiomyopathy, unspecified; I48.21 Permanent atrial fibrillation; I11.0 Hypertensive heart disease with heart failure; I50.32 Chronic diastolic (congestive) heart failure; E78.2 Mixed hyperlipidemia; I25.10 Atherosclerotic heart disease of native coronary artery without angina pectoris; I48.0 Paroxysmal atrial fibrillation; Z79.899 Other long term (current) drug therapy; Z95.810 Presence of automatic (implantable) cardiac defibrillator; Z87.891 Personal history of nicotine dependence ==

== ENCOUNTER → 2019-05-28 | Outpatient (CLI) | payer OTHER | LOC: CAT 10:16 | DX: J96.11 Chronic respiratory failure with hypoxia (principal); R91.8 Other nonspecific abnormal finding of lung field; J98.11 Atelectasis ==

== ENCOUNTER → 2019-08-20 | Outpatient (CLI) | payer OTHER ==
[~2019-08-20] VITALS: Ht 157.5 cm; Wt 67.1 kg
[~2019-08-20] MED LIST changes: +KLOR-CON M2020 MEQ PO; +OCUVITE EYE +1 EACH PO; +PAIN RELIEF325 MG PO
[2019-08-20 10:32] VITALS: BP 158/57
[2019-08-20 10:37] LABS: ABSOLUTE NEUTROPHILS 5.8 thou/uL (1.4-8.2); BASOPHILS 0.5 % (0.0-2.0); HEMATOCRIT 45.4 % (37.0-47.0); HEMOGLOBIN 15.1 gm/dL (12.0-15.0); LYMPHOCYTES 16.6 % (24.0-44.0); MCHC 33.3 g/dL (28.0-37.0); MCV 90.2 fL (80.0-100.0); MONOCYTES 8.8 % (1.0-8.0); PLATELET COUNT 189 thou/uL (150-400); POLYS 73.1 % (36.0-66.0); RBC 5.03 mil/uL (4.20-5.00); RDW 15.4 % (10.5-14.5)
[2019-08-20 10:46] LABS: CALCIUM 10.2 mg/dL (8.5-10.1); CREATININE 1.6 mg/dL (0.6-1.0); POTASSIUM 4.2 mmol/L (3.5-5.1)
[2019-08-20 10:49] LABS: INR 1.4; PROTIME 14.1 Seconds (9.3-11.4)
--- NOTE | 2019-09-02 14:22 | CATHLAB ---
[facility] [place] [address] INVASIVE PROCEDURE REPORT Name: EDWIGE FOURNIER Room #: REG RAUL Renay#: [id number] Admission: 08/20/19 Attend Phys: Abhay Bello Discharge: Date of : 33 Report #: [id number] THIS REPORT FOR: cc: Elliott Gil MD, Stany A. MD Lammoglia, Francisco J. MD ~ APPROVED REPORT Study performed: 08/20/2019 11:18:03 Patient Status: Out-Patient Room #: Event Personnel: MD Jez Mathews, RN Alexey Rubio, RTR Exam: Generator Change for a Bi-Ventricular Permanent Pacemaker, revision of pocket for better fit of device and resolution of device pain Indications: Cardiomyopathy with left ventricular dysfunction device at [facility] The patient is a 84 year-old female with a history of Cardiomyopathy and left ventricular dysfunction. Conscious Sedation Start time: 11:53 End Time: 12:58 Versed 3.0 mg 12.5 mg of Demerol IV push Implanted Devices: Medtronic: Model#: [id number]; Serial #: [id number]; Explanted Devices: Medtronic: Product Name-HIM SPECIALIST-D [id number] VIVAbram Robyn US IS1/DF1; Serial #: [id number] Procedure The patient underwent informed consent. We discussed the details of the procedure including the risks, which include, but not limited to bleeding, infection, vascular damage, cardiac perforation, and pneumothorax. She understood these risks and was willing to proceed. As such, she was brought to the EP/Cardiac Catheterization laboratory in a fasting and sedated state and prepped and draped in a The patient underwent conscious sedation, with no related complications. The patient was brought to the EP/Cardiac Catheterization laboratory and the right chest and shoulder were prepped and draped in a sterile [facility] [place] [address] INVASIVE PROCEDURE REPORT Name: EDWIGE FOURNIER Room #: REG LINDA Niño#: [id number] Admission: 08/20/19 Attend Phys: Abhay Wilson Discharge: Date of : 33 Report #: [id number] manner. Electrode Parameters P Wave: 1.4 R Wave: Paced Ventricular Threshold: 2V@0.40Ms Atrial Resistance: 399 ohms Ventricular Resistance: 532 Generator Change The lead was attached to the appropriate receptacle on the new pulse generator and setscrews firmly tightened to insure adequate contact and stability. The lead and pulse generator were placed into the subcutaneous pocket. Sharp and sponge counts were confirmed to be correct. At this time the pocket was closed subcutaneously with a 2 oh nonabsorbable suture in a running locking stitch and the skin was closed with a 3-0 Vicryl in a subcuticular stitch. The operative site was dressed in sterile fashion with Steri-Strips 4 x 4 and OpSite and the patient was transferred to the floor in stable condition. Complications The patient tolerated the procedure well and there were no complications associated with the procedure. Conclusion 1. Successful biventricular defibrillator generator change Recommendations 1. Routine post by V ICD GEN change protocol <ELECTRONICALLY SIGNED> By: Abhay Bello MD 09/02/19 1421 142 142 Abhay Bello MD /INF
== END | disposition home or self-care (01) ==
LOC: CATH 06-27 08:30 → EDSTATUS 06-27 09:22 → CATH 06-27 10:14
PROVIDERS: ATTEND Internal Medicine
DX: Z45.02 Encounter for adjustment and management of automatic implantable cardiac defibrillator (principal); I42.9 Cardiomyopathy, unspecified; I11.0 Hypertensive heart disease with heart failure; I50.9 Heart failure, unspecified; I48.91 Unspecified atrial fibrillation; E05.00 Thyrotoxicosis with diffuse goiter without thyrotoxic crisis or storm; M10.9 Gout, unspecified; Z11.59 Encounter for screening for other viral diseases; Z98.890 Other specified postprocedural states; Z79.899 Other long term (current) drug therapy; Z90.49 Acquired absence of other specified parts of digestive tract; Z87.442 Personal history of urinary calculi; Z82.49 Family history of ischemic heart disease and other diseases of the circulatory system; Z87.891 Personal history of nicotine dependence; Z88.0 Allergy status to penicillin; Z88.8 Allergy status to other drugs, medicaments and biological substances; Z79.82 Long term (current) use of aspirin

== ENCOUNTER → 2020-01-22 | Outpatient (CLI) | payer OTHER | LOC: BC 01-01 15:43 | PROVIDERS: ATTEND Internal Medicine | DX: Z12.31 Encounter for screening mammogram for malignant neoplasm of breast (principal) ==

== ENCOUNTER → 2020-04-02 | Outpatient (CLI) | payer OTHER, MEDICAID | LOC: SJCVC 10:59 | PROVIDERS: ATTEND Internal Medicine | DX: R94.31 Abnormal electrocardiogram [ECG] [EKG] (principal); I42.9 Cardiomyopathy, unspecified; I11.0 Hypertensive heart disease with heart failure; I50.32 Chronic diastolic (congestive) heart failure; I48.21 Permanent atrial fibrillation; E78.5 Hyperlipidemia, unspecified; I48.0 Paroxysmal atrial fibrillation; Z79.899 Other long term (current) drug therapy; Z87.891 Personal history of nicotine dependence; Z79.01 Long term (current) use of anticoagulants; Z95.810 Presence of automatic (implantable) cardiac defibrillator; Z86.16 Personal history of COVID-19 ==

== ENCOUNTER → 2020-04-23 | Outpatient (CLI) | payer OTHER, MEDICAID | LOC: SJCVC 10:53 | PROVIDERS: ATTEND Internal Medicine | DX: Z51.81 Encounter for therapeutic drug level monitoring (principal); I48.0 Paroxysmal atrial fibrillation; I25.5 Ischemic cardiomyopathy; I25.10 Atherosclerotic heart disease of native coronary artery without angina pectoris; I50.32 Chronic diastolic (congestive) heart failure; E78.5 Hyperlipidemia, unspecified; Z95.810 Presence of automatic (implantable) cardiac defibrillator; Z86.16 Personal history of COVID-19; Z79.01 Long term (current) use of anticoagulants ==

== ENCOUNTER → 2020-05-07 | Outpatient (CLI) | payer OTHER, MEDICAID | LOC: SJCVC 14:40 | PROVIDERS: ATTEND Internal Medicine | DX: Z51.81 Encounter for therapeutic drug level monitoring (principal); Z79.01 Long term (current) use of anticoagulants; Z79.899 Other long term (current) drug therapy; Z88.0 Allergy status to penicillin; Z88.9 Allergy status to unspecified drugs, medicaments and biological substances; Z88.8 Allergy status to other drugs, medicaments and biological substances ==

== ENCOUNTER → 2020-07-07 | Outpatient (CLI) | payer OTHER, MEDICAID | LOC: CAT 11:50 | PROVIDERS: ATTEND Internal Medicine | DX: J98.11 Atelectasis (principal); R91.1 Solitary pulmonary nodule; I25.10 Atherosclerotic heart disease of native coronary artery without angina pectoris; M41.84 Other forms of scoliosis, thoracic region ==

== ENCOUNTER → 2020-07-16 | Outpatient (CLI) | payer OTHER, MEDICAID | LOC: SJCVC 10:35 | PROVIDERS: ATTEND Internal Medicine Cardiovascular Disease | DX: Z51.81 Encounter for therapeutic drug level monitoring (principal); I48.0 Paroxysmal atrial fibrillation; I42.9 Cardiomyopathy, unspecified; I25.10 Atherosclerotic heart disease of native coronary artery without angina pectoris; I50.32 Chronic diastolic (congestive) heart failure; E78.5 Hyperlipidemia, unspecified; Z95.828 Presence of other vascular implants and grafts; Z79.01 Long term (current) use of anticoagulants; Z79.899 Other long term (current) drug therapy ==

== ENCOUNTER 2020-07-31 23:46 | Emergency (ER) | payer OTHER, MEDICAID ==
[~2020-07-31] VITALS: Ht 157.5 cm; Wt 66.7 kg
[2020-08-01 03:47] VITALS: BP 122/49
== END 2020-08-01 04:04 | disposition home or self-care (01) ==
LOC: ER 23:46
DX: S16.1XXA Strain of muscle, fascia and tendon at neck level, initial encounter (principal); R51.9 Headache, unspecified; I48.91 Unspecified atrial fibrillation; I11.0 Hypertensive heart disease with heart failure; I50.9 Heart failure, unspecified; Z90.89 Acquired absence of other organs; Z95.0 Presence of cardiac pacemaker; Z90.49 Acquired absence of other specified parts of digestive tract; Z87.442 Personal history of urinary calculi; Z79.899 Other long term (current) drug therapy; Z79.01 Long term (current) use of anticoagulants; Z88.8 Allergy status to other drugs, medicaments and biological substances; Z88.1 Allergy status to other antibiotic agents; Z88.0 Allergy status to penicillin; Z87.891 Personal history of nicotine dependence; W05.0XXA Fall from non-moving wheelchair, initial encounter; Y93.89 Activity, other specified; Y92.89 Other specified places as the place of occurrence of the external cause; Y99.8 Other external cause status

== ENCOUNTER → 2020-08-13 | Outpatient (CLI) | payer OTHER, MEDICAID | LOC: SJCVC 09:38 | PROVIDERS: ATTEND Internal Medicine | DX: Z51.81 Encounter for therapeutic drug level monitoring (principal); I48.0 Paroxysmal atrial fibrillation; I25.10 Atherosclerotic heart disease of native coronary artery without angina pectoris; I50.32 Chronic diastolic (congestive) heart failure; E78.5 Hyperlipidemia, unspecified; Z95.810 Presence of automatic (implantable) cardiac defibrillator; Z79.01 Long term (current) use of anticoagulants ==

== ENCOUNTER 2020-09-01 11:13 | Emergency (ER) | payer OTHER, MEDICAID ==
[~2020-09-01] VITALS: Ht 157.5 cm; Wt 67.1 kg
[2020-09-01 12:08] LABS: ABSOLUTE NEUTROPHILS 4.9 thou/uL (1.4-8.2); BASOPHILS 0.3 % (0.0-2.0); EOSINOPHILS 1.1 % (0.0-3.0); HEMOGLOBIN 13.5 gm/dL (12.0-15.0); LYMPHOCYTES 17.2 % (24.0-44.0); MCH 29.3 pg (26.0-34.0); MCHC 32.9 g/dL (28.0-37.0); MCV 89.1 fL (80.0-100.0); MONOCYTES 8.7 % (1.0-8.0); PLATELET COUNT 166 thou/uL (150-400); POLYS 72.7 % (36.0-66.0); RDW 15.9 % (10.5-14.5); WBC 6.7 thou/uL (4.0-11.0)
[2020-09-01 12:16] LABS: CALCIUM 9.7 mg/dL (8.5-10.1); CREATININE 1.9 mg/dL (0.6-1.0)
[2020-09-01 12:21] LABS: APTT 34.8 Seconds (24.5-32.8); INR 1.82; PROTIME 19.3 Seconds (10.5-12.1)
[2020-09-01 12:22] LABS: ALBUMIN 3.7 g/dL (3.4-5.0); TOTAL BILIRUBIN 0.7 mg/dL (0.2-1.0); TOTAL PROTEIN 7.3 g/dL (6.4-8.2)
[2020-09-01 12:35] LABS: URINE BILIRUBIN NEGATIVE (Negative); URINE BLOOD 3+ (Negative); URINE CLARITY TURBID; URINE COLOR RED; URINE GLUCOSE-RANDOM* NEGATIVE (Negative); URINE KETONES NEGATIVE (Negative); URINE LEUKOCYTES-REFLEX TRACE (Negative); URINE NITRITE-REFLEX NEGATIVE (Negative); URINE PROTEIN (DIPSTICK) 2+ (Negative); URINE UROBILINOGEN 0.2 E.U./dl (0.2-1.0)
[2020-09-01 12:42] LABS: SQUAMOUS 0-3 Few /LPF (0-3)
[2020-09-01 12:43] LABS: BACTERIA-REFLEX 1-9 Few /HPF (None Seen); CASTS None Seen /LPF (None Seen); CRYSTALS None Seen /LPF (None Seen); URINE RBC >20 Many /HPF (NONE SEEN); URINE WBC-REFLEX 0-5 Rare /HPF (0-5)
[2020-09-01] MEDS ORDERED: FEXOFENADINE-P1 EACH PO (13:34)
[2020-09-01] MEDS ORDERED: LASIX 40 MG TAB40 MG PO (13:34)
[2020-09-01] MEDS ORDERED: REFRESH DIGITA1 EACH EA. EAR (13:34)
[2020-09-01] MEDS ORDERED: TOPROL XL50 MG PO (13:35)
[2020-09-01] MEDS ORDERED: MAPAP325 MG PO (13:35)
[2020-09-01] MEDS ORDERED: LEVOTHYROXINE75 MC1 PO (13:35)
[2020-09-01] MEDS ORDERED: MILK OF MA400 MG/5 M PO (13:35)
[2020-09-01] MEDS ORDERED: MUCINEX600 MG PO (13:36)
[2020-09-01] MEDS ORDERED: PROTONIX 20 MG20 MG PO (13:36)
[2020-09-01] MEDS ORDERED: OCUVITE ADULT1 EAC1 PO (13:36)
[2020-09-01] MEDS ORDERED: KLOR-CON 10 ER10 MEQ PO (13:36)
[2020-09-01] MEDS ORDERED: TUSSIN100 MG/5 M PO (13:37)
[2020-09-01] MEDS ORDERED: ROXIFOL-D TA500 UNIT PO (13:37)
[2020-09-01] MEDS ORDERED: JANTOVEN1 MG PO ×2 (13:38→13:39)
[2020-09-01] MEDS ORDERED: ZOFRAN4 MG PO (13:39)
[2020-09-01 20:45] VITALS: BP 168/63
== END 2020-09-01 20:49 | disposition short-term general hospital (02) ==
LOC: ER 11:13
PROVIDERS: Nurse Practitioner
DX: R31.9 Hematuria, unspecified (principal); I11.0 Hypertensive heart disease with heart failure; I50.9 Heart failure, unspecified; Z95.0 Presence of cardiac pacemaker; Z90.49 Acquired absence of other specified parts of digestive tract; Z90.89 Acquired absence of other organs; Z87.442 Personal history of urinary calculi; Z79.899 Other long term (current) drug therapy; Z79.01 Long term (current) use of anticoagulants; Z88.8 Allergy status to other drugs, medicaments and biological substances; Z88.0 Allergy status to penicillin; Z88.1 Allergy status to other antibiotic agents; Z87.891 Personal history of nicotine dependence

== ENCOUNTER 2020-09-26 10:38 | Emergency (ER) | payer OTHER, MEDICAID ==
[~2020-09-26] VITALS: Ht 162.6 cm; Wt 67.1 kg
[~2020-09-26 10:38] MED LIST changes: +FEXOFENADINE-P1 EACH PO; +JANTOVEN1 MG PO; +KLOR-CON 10 ER10 MEQ PO; +LASIX 40 MG TAB40 MG PO; +LEVOTHYROXINE75 MC1 PO; +MAPAP325 MG PO; +MILK OF MA400 MG/5 M PO; +PROTONIX 20 MG20 MG PO; +REFRESH DIGITA1 EACH EA. EAR; +ROXIFOL-D TA500 UNIT PO; +TUSSIN100 MG/5 M PO; +ZOFRAN4 MG PO
[2020-09-26] MEDS ORDERED: LIPITOR40 MG PO (10:44)
[2020-09-26] MEDS ORDERED: JANTOVEN1 MG PO ×2 (10:45)
[2020-09-26 11:09] LABS: ABSOLUTE NEUTROPHILS 5.5 thou/uL (1.4-8.2); BASOPHILS 0.4 % (0.0-2.0); EOSINOPHILS 1.1 % (0.0-3.0); HEMATOCRIT 36.7 % (37.0-47.0); LYMPHOCYTES 11.6 % (24.0-44.0); MCH 29.4 pg (26.0-34.0); MCHC 32.8 g/dL (28.0-37.0); MCV 89.6 fL (80.0-100.0); MONOCYTES 6.7 % (1.0-8.0); PLATELET COUNT 198 thou/uL (150-400); POLYS 80.2 % (36.0-66.0); RBC 4.09 mil/uL (4.20-5.00); RDW 16.2 % (10.5-14.5); WBC 6.9 thou/uL (4.0-11.0)
[2020-09-26 11:14] LABS: CALCIUM 9.8 mg/dL (8.5-10.1); CREATININE 1.3 mg/dL (0.6-1.0); POTASSIUM 3.9 mmol/L (3.5-5.1)
[2020-09-26 11:19] LABS: URINE BILIRUBIN NEGATIVE (Negative); URINE BLOOD 2+ (Negative); URINE CLARITY CLEAR; URINE COLOR YELLOW; URINE GLUCOSE-RANDOM* NEGATIVE (Negative); URINE KETONES NEGATIVE (Negative); URINE NITRITE-REFLEX NEGATIVE (Negative); URINE PROTEIN (DIPSTICK) 1+ (Negative); URINE UROBILINOGEN 0.2 E.U./dl (0.2-1.0)
[2020-09-26 11:20] LABS: ALBUMIN 3.8 g/dL (3.4-5.0); TOTAL BILIRUBIN 1.6 mg/dL (0.2-1.0); TOTAL PROTEIN 7.1 g/dL (6.4-8.2)
[2020-09-26 11:20] LABS: URINE LEUKOCYTES-REFLEX 1+ (Negative)
[2020-09-26 11:34] LABS: SQUAMOUS 0-3 Few /LPF (0-3)
[2020-09-26 11:35] LABS: BACTERIA-REFLEX 1-9 Few /HPF (None Seen); CASTS None Seen /LPF (None Seen); CRYSTALS None Seen /LPF (None Seen); URINE RBC 1-2 Rare /HPF (NONE SEEN); URINE WBC-REFLEX 6-15 Few /HPF (0-5)
[2020-09-26 12:59] LABS: BE(vivo) -0.2 mmol/L (-2 to +3); HCO3 24.1 mmol/L (22.0-26.0); PCO2 38.1 mmHg (35.0-45.0); PO2 99.2 mmHg (80.0-100.0); pH 7.419 (7.360-7.450); sO2 97.6 % (92.0-98.0)
[2020-09-26] MEDS ORDERED: LASIX 40 MG TAB40 MG PO ×3 (13:25→13:36)
[2020-09-26] MEDS ORDERED: CEPHALEXIN500 MG PO ×3 (13:25→13:36)
[2020-09-26] MEDS ORDERED: DIFLUCAN150 MG PO (13:25)
[2020-09-26 13:33] VITALS: BP 198/87
--- NOTE | 2020-09-27 11:01 | EKG ---
[place] [address] [place] [facility] [place] [address] ELECTROCARDIOGRAM REPORT Name: EDWIGE FOURNIER Room #: [facility] RANDY Niño#: [id number] Admission: 09/26/20 Attend Phys: Discharge: 09/26/20 Date of : 33 Report #: [id number] [facility] ED Test Date: 2020-09-26 Test Time: 10:50:00 Pat Name: EDWIGE FOURNIER Department: Room: Gender: F Fishing Tool Supervisor: DAVID : 1935 Requested By: Montana Muñoz Order Number: [id number] MD: Ga Mejia Measurements Intervals [place] Rate: 60 P: 213 IA: 172 QRS: 261 QRSD: 102 T: 240 QT: 348 QTc: 348 Interpretive Statements Ventricular-paced rhythm No further analysis attempted due to paced rhythm Compared to ECG 01/18/2019 11:32:25 No significant changes Electronically Signed On 09-27-2020 11:01:44 CDT by Ga Mejia [email or web address] <ELECTRONICALLY SIGNED> By: Ga Mejia MD 09/27/20 1101 1050 1050 Ga Mejia MD /EPI
== END 2020-09-26 13:26 | disposition home or self-care (01) ==
LOC: ER 10:38
PROVIDERS: Emergency Medicine
DX: N39.0 Urinary tract infection, site not specified (principal); I50.9 Heart failure, unspecified; I11.0 Hypertensive heart disease with heart failure; M10.9 Gout, unspecified; I48.91 Unspecified atrial fibrillation; F17.210 Nicotine dependence, cigarettes, uncomplicated; Z90.89 Acquired absence of other organs; Z87.442 Personal history of urinary calculi; Z95.0 Presence of cardiac pacemaker; Z88.0 Allergy status to penicillin; Z88.1 Allergy status to other antibiotic agents

== ENCOUNTER → 2020-09-28 | Outpatient (CLI) | payer OTHER, MEDICAID ==
[~2020-09-28] MED LIST changes: +CEPHALEXIN500 MG PO; +DIFLUCAN150 MG PO; +LIPITOR40 MG PO
== END ==
LOC: SJCVC 13:23
PROVIDERS: ATTEND Internal Medicine
DX: Z51.81 Encounter for therapeutic drug level monitoring (principal); I42.9 Cardiomyopathy, unspecified; I25.10 Atherosclerotic heart disease of native coronary artery without angina pectoris; I48.0 Paroxysmal atrial fibrillation; I50.32 Chronic diastolic (congestive) heart failure; E78.5 Hyperlipidemia, unspecified; Z95.810 Presence of automatic (implantable) cardiac defibrillator; Z79.01 Long term (current) use of anticoagulants

== ENCOUNTER 2020-09-29 14:09 | Emergency (ER) | payer OTHER, MEDICAID ==
[~2020-09-29] VITALS: Ht 157.5 cm; Wt 68.0 kg
[2020-09-29 14:52] LABS: ABSOLUTE NEUTROPHILS 5.6 thou/uL (1.4-8.2); BASOPHILS 0.5 % (0.0-2.0); EOSINOPHILS 1.2 % (0.0-3.0); HEMATOCRIT 41.7 % (37.0-47.0); HEMOGLOBIN 13.8 gm/dL (12.0-15.0); LYMPHOCYTES 13.1 % (24.0-44.0); MCH 29.4 pg (26.0-34.0); MCHC 33.1 g/dL (28.0-37.0); MCV 88.6 fL (80.0-100.0); MONOCYTES 7.7 % (1.0-8.0); PLATELET COUNT 219 thou/uL (150-400); POLYS 77.5 % (36.0-66.0); RDW 16.7 % (10.5-14.5); WBC 7.2 thou/uL (4.0-11.0)
[2020-09-29 15:00] LABS: ANION GAP 9 mmol/L (7-16); BUN 20 mg/dL (7-18); CALCIUM 10.1 mg/dL (8.5-10.1); CHLORIDE 104 mmol/L (98-107); CO2 30 mmol/L (21-32); CREATININE 1.5 mg/dL (0.6-1.0); GLUCOSE 119 mg/dL (74-106); POTASSIUM 3.7 mmol/L (3.5-5.1); SODIUM 143 mmol/L (136-145)
[2020-09-29 15:05] LABS: BE(vivo) 0.8 mmol/L (-2 to +3); PCO2 33.9 mmHg (35.0-45.0); PO2 61.9 mmHg (80.0-100.0); pH 7.467 (7.360-7.450); sO2 93.2 % (92.0-98.0)
[2020-09-29 15:10] LABS: ALBUMIN 4.2 g/dL (3.4-5.0); MAGNESIUM 2.2 mg/dL (1.8-2.4); SGOT 44 U/L (15-37); SGPT 36 U/L (14-59); TOTAL BILIRUBIN 1.7 mg/dL (0.2-1.0); TOTAL PROTEIN 7.8 g/dL (6.4-8.2); TROPONIN-I <0.06 ng/mL (<0.06)
[2020-09-29 15:34] LABS: APTT 28.4 Seconds (24.5-32.8); INR 1.72; PROTIME 18.3 Seconds (10.5-12.1)
--- NOTE | 2020-09-29 15:58 | EKG ---
[address] [place] [address] ELECTROCARDIOGRAM REPORT Name: EDWIGE FOURNIER Room #: REG RANDY Niño#: [id number] Admission: 09/29/20 Attend Phys: Discharge: Date of : 33 Report #: [id number] [facility] ED Test Date: 2020-09-29 Test Time: 14:53:14 Pat Name: EDWIGE FOURNIER Department: Room: Gender: F Medical Surgical Tech: DAVID : 1935 Requested By: Montana Muñoz Order Number: [id number] MD: Aime Ruby Measurements Intervals [place] Rate: 60 P: 0 NC: 73 QRS: 265 QRSD: 116 T: 206 QT: 459 QTc: 459 Interpretive Statements Ventricular-paced rhythm No further analysis attempted due to paced rhythm Compared to ECG 09/26/2020 10:50:00 No significant changes Electronically Signed On 09-29-2020 15:58:10 CDT by Aime Ruby [email or web address] <ELECTRONICALLY SIGNED> By: Aime Ruby MD, [facility] 09/29/20 1558 1453 1453 Aime Ruby MD, FACC /EPI
[2020-09-29 16:20] LABS: URINE BILIRUBIN NEGATIVE (Negative); URINE BLOOD TRACE (Negative); URINE CLARITY CLEAR; URINE COLOR YELLOW; URINE GLUCOSE-RANDOM* NEGATIVE (Negative); URINE KETONES NEGATIVE (Negative); URINE NITRITE-REFLEX NEGATIVE (Negative); URINE PROTEIN (DIPSTICK) NEGATIVE (Negative); URINE UROBILINOGEN 0.2 E.U./dl (0.2-1.0)
[2020-09-29 16:25] LABS: URINE LEUKOCYTES-REFLEX 1+ (Negative)
[2020-09-29 16:34] LABS: SQUAMOUS 4-10 Moderate /LPF (0-3)
[2020-09-29 16:35] LABS: BACTERIA-REFLEX 1-9 Few /HPF (None Seen); CASTS None Seen /LPF (None Seen); CRYSTALS None Seen /LPF (None Seen); URINE RBC 3-10 Few /HPF (NONE SEEN); URINE WBC-REFLEX 6-15 Few /HPF (0-5)
[2020-09-29 16:36] LABS: WBC CLUMPS Occasional (None Seen)
[2020-09-29 17:06] VITALS: BP 166/73
== END 2020-09-29 17:23 | disposition home or self-care (01) ==
LOC: ER 14:09
PROVIDERS: Emergency Medicine
DX: R41.0 Disorientation, unspecified (principal); Z20.822 Contact with and (suspected) exposure to COVID-19; F17.210 Nicotine dependence, cigarettes, uncomplicated; M10.9 Gout, unspecified; K21.9 Gastro-esophageal reflux disease without esophagitis; I50.9 Heart failure, unspecified; I11.0 Hypertensive heart disease with heart failure; G89.29 Other chronic pain; Z87.442 Personal history of urinary calculi; Z90.89 Acquired absence of other organs; Z95.0 Presence of cardiac pacemaker; Z88.0 Allergy status to penicillin; Z88.1 Allergy status to other antibiotic agents

== ENCOUNTER → 2020-10-06 | Outpatient (CLI) | payer OTHER, MEDICAID | LOC: SJCVC 11:09 | PROVIDERS: ATTEND Internal Medicine | DX: Z51.81 Encounter for therapeutic drug level monitoring (principal); J42 Unspecified chronic bronchitis; E78.5 Hyperlipidemia, unspecified; I25.10 Atherosclerotic heart disease of native coronary artery without angina pectoris; E21.0 Primary hyperparathyroidism; Z79.01 Long term (current) use of anticoagulants; Z79.899 Other long term (current) drug therapy; Z88.8 Allergy status to other drugs, medicaments and biological substances; Z88.0 Allergy status to penicillin; Z86.16 Personal history of COVID-19; Z87.891 Personal history of nicotine dependence ==

== ENCOUNTER → 2020-10-13 | Outpatient (CLI) | payer OTHER, MEDICAID | LOC: SJCVC 14:27 | PROVIDERS: ATTEND Internal Medicine | DX: Z51.81 Encounter for therapeutic drug level monitoring (principal); E78.5 Hyperlipidemia, unspecified; I10 Essential (primary) hypertension; Z79.01 Long term (current) use of anticoagulants; Z79.899 Other long term (current) drug therapy; Z88.0 Allergy status to penicillin; Z88.8 Allergy status to other drugs, medicaments and biological substances; Z86.16 Personal history of COVID-19; Z95.810 Presence of automatic (implantable) cardiac defibrillator; Z87.891 Personal history of nicotine dependence ==

== ENCOUNTER → 2020-10-28 | Outpatient (CLI) | payer OTHER, MEDICAID | LOC: SJCVC 11:03 | PROVIDERS: ATTEND Internal Medicine | DX: Z51.81 Encounter for therapeutic drug level monitoring (principal); I48.0 Paroxysmal atrial fibrillation; I42.9 Cardiomyopathy, unspecified; I25.10 Atherosclerotic heart disease of native coronary artery without angina pectoris; E78.5 Hyperlipidemia, unspecified; I50.32 Chronic diastolic (congestive) heart failure; Z95.810 Presence of automatic (implantable) cardiac defibrillator; Z79.01 Long term (current) use of anticoagulants; Z79.899 Other long term (current) drug therapy ==

== ENCOUNTER → 2020-11-18 | Outpatient (CLI) | payer OTHER, MEDICAID | LOC: SJCVC 14:35 | PROVIDERS: ATTEND Internal Medicine | DX: Z51.81 Encounter for therapeutic drug level monitoring (principal); I10 Essential (primary) hypertension; I25.10 Atherosclerotic heart disease of native coronary artery without angina pectoris; E78.5 Hyperlipidemia, unspecified; Z79.01 Long term (current) use of anticoagulants; Z79.899 Other long term (current) drug therapy; Z88.0 Allergy status to penicillin; Z88.8 Allergy status to other drugs, medicaments and biological substances; Z86.16 Personal history of COVID-19; Z87.891 Personal history of nicotine dependence ==

== ENCOUNTER → 2020-11-26 | Outpatient (CLI) | payer OTHER, MEDICAID | LOC: SJCVC 13:56 | PROVIDERS: ATTEND Internal Medicine | DX: Z51.81 Encounter for therapeutic drug level monitoring (principal); Z79.01 Long term (current) use of anticoagulants ==

== ENCOUNTER → 2020-12-07 | Outpatient (CLI) | payer OTHER, MEDICAID | LOC: SJCVC 11:06 | PROVIDERS: ATTEND Internal Medicine | DX: Z51.81 Encounter for therapeutic drug level monitoring (principal); I48.0 Paroxysmal atrial fibrillation; I42.9 Cardiomyopathy, unspecified; I25.10 Atherosclerotic heart disease of native coronary artery without angina pectoris; E78.5 Hyperlipidemia, unspecified; Z86.16 Personal history of COVID-19; Z95.810 Presence of automatic (implantable) cardiac defibrillator; Z79.01 Long term (current) use of anticoagulants ==

== ENCOUNTER → 2020-12-21 | Outpatient (CLI) | payer OTHER, MEDICAID | LOC: SJCVC 13:37 | PROVIDERS: ATTEND Internal Medicine | DX: Z51.81 Encounter for therapeutic drug level monitoring (principal); Z79.01 Long term (current) use of anticoagulants ==

== ENCOUNTER → 2021-01-05 | Outpatient (CLI) | payer OTHER, MEDICAID ==
[2021-01-05 12:45] LABS: ABSOLUTE NEUTROPHILS 5.1 thou/uL (1.4-8.2); BASOPHILS 0.1 % (0.0-2.0); EOSINOPHILS 6.1 % (0.0-3.0); HEMATOCRIT 38.6 % (37.0-47.0); HEMOGLOBIN 12.2 gm/dL (12.0-15.0); LYMPHOCYTES 15.3 % (24.0-44.0); MCH 28.5 pg (26.0-34.0); MCHC 31.5 g/dL (28.0-37.0); MCV 90.3 fL (80.0-100.0); PLATELET COUNT 172 thou/uL (150-400); POLYS 71.5 % (36.0-66.0); RBC 4.27 mil/uL (4.20-5.00); RDW 15.7 % (10.5-14.5); WBC 7.2 thou/uL (4.0-11.0)
[2021-01-05 13:07] LABS: ALBUMIN 3.9 g/dL (3.4-5.0); CALCIUM 9.9 mg/dL (8.5-10.1); CREATININE 1.4 mg/dL (0.6-1.0); MAGNESIUM 2.1 mg/dL (1.8-2.4); TOTAL BILIRUBIN 0.8 mg/dL (0.2-1.0); TOTAL PROTEIN 7.1 g/dL (6.4-8.2)
[2021-01-06 12:07] LABS: ANTI-DNA SCREEN 3 IU/mL (0-9); ANTI-RNP <0.2 AI (0.0-0.9)
== END ==
LOC: ULTRA 10:27
PROVIDERS: ATTEND Psychiatry & Neurology Neuromuscular Medicine
DX: I48.0 Paroxysmal atrial fibrillation (principal); I65.23 Occlusion and stenosis of bilateral carotid arteries; F03.90 Unspecified dementia, unspecified severity, without behavioral disturbance, psychotic disturbance, mood disturbance, and anxiety; E03.9 Hypothyroidism, unspecified; R20.8 Other disturbances of skin sensation; R53.1 Weakness

== ENCOUNTER → 2021-01-11 | Outpatient (CLI) | payer OTHER, MEDICAID | LOC: SJCVC 14:37 | PROVIDERS: ATTEND Internal Medicine | DX: Z51.81 Encounter for therapeutic drug level monitoring (principal); Z79.01 Long term (current) use of anticoagulants ==

== ENCOUNTER → 2021-02-08 | Outpatient (CLI) | payer OTHER, MEDICAID | LOC: SJCVC 14:35 | PROVIDERS: ATTEND Internal Medicine | DX: Z51.81 Encounter for therapeutic drug level monitoring (principal); Z79.01 Long term (current) use of anticoagulants ==

== ENCOUNTER 2021-03-04 20:18 | Emergency (ER) | payer OTHER, MEDICAID ==
[~2021-03-04] VITALS: Ht 160 cm; Wt 63.1 kg
[2021-03-04 20:54] LABS: ABSOLUTE NEUTROPHILS 6.3 thou/uL (1.4-8.2); BASOPHILS 0.7 % (0.0-2.0); EOSINOPHILS 1.9 % (0.0-3.0); HEMATOCRIT 39.3 % (37.0-47.0); HEMOGLOBIN 12.7 gm/dL (12.0-15.0); LYMPHOCYTES 11.7 % (24.0-44.0); MCH 28.5 pg (26.0-34.0); MCHC 32.3 g/dL (28.0-37.0); MCV 88.3 fL (80.0-100.0); PLATELET COUNT 165 thou/uL (150-400); POLYS 78.7 % (36.0-66.0); RBC 4.45 mil/uL (4.20-5.00); RDW 15.9 % (10.5-14.5)
[2021-03-04 21:01] LABS: CALCIUM 9.6 mg/dL (8.5-10.1); CREATININE 1.3 mg/dL (0.6-1.0); POTASSIUM 3.7 mmol/L (3.5-5.1)
[2021-03-04 21:11] LABS: ALBUMIN 3.8 g/dL (3.4-5.0); MAGNESIUM 1.9 mg/dL (1.8-2.4); TOTAL BILIRUBIN 0.7 mg/dL (0.2-1.0); TOTAL PROTEIN 7.3 g/dL (6.4-8.2)
[2021-03-04 21:45] LABS: URINE BILIRUBIN NEGATIVE (Negative); URINE BLOOD 2+ (Negative); URINE CLARITY CLEAR; URINE COLOR YELLOW; URINE GLUCOSE-RANDOM* NEGATIVE (Negative); URINE KETONES NEGATIVE (Negative); URINE LEUKOCYTES-REFLEX 2+ (Negative); URINE NITRITE-REFLEX NEGATIVE (Negative); URINE PROTEIN (DIPSTICK) NEGATIVE (Negative); URINE SPECIFIC GRAVITY 1.015 (1.005-1.035); URINE UROBILINOGEN 0.2 E.U./dl (0.2-1.0)
[2021-03-04 21:55] LABS: BACTERIA-REFLEX 1-9 Few /HPF (None Seen); CASTS None Seen /LPF (None Seen); CRYSTALS None Seen /LPF (None Seen); SQUAMOUS 0-3 Few /LPF (0-3); URINE RBC 1-2 Rare /HPF (NONE SEEN); URINE WBC-REFLEX 6-15 Few /HPF (0-5)
[2021-03-04 22:30] VITALS: BP 157/80
[2021-03-04] MEDS ORDERED: ASA81BEC PO (22:54)
[2021-03-04] MEDS ORDERED: CELEXA10 MG PO (22:54)
[2021-03-04] MEDS ORDERED: DONEPEZIL HCL 55 M1 PO (22:57)
[2021-03-04] MEDS ORDERED: FAMOTIDINE20 MG PO (22:58)
[2021-03-04] MEDS ORDERED: LOPERAMIDE2 MG PO (22:59)
[2021-03-04] MEDS ORDERED: MELATONIN5 MG PO (23:00)
[2021-03-04] MEDS ORDERED: KLOR-CON M2020 MEQ PO (23:01)
--- NOTE | 2021-03-05 07:17 | EKG ---
[place] [address] [facility] [facility] [place] [address] ELECTROCARDIOGRAM REPORT Name: EDWIGE FOURNIER Room #: [facility] Renay#: [id number] Admission: 03/04/21 Attend Phys: Discharge: 03/04/21 Date of : 33 Report #: [id number] [facility] ED Test Date: 2021-03-04 Test Time: 21:00:23 Pat Name: EDWIGE FOURNIER Department: Room: Gender: F Header Dock: rodriguez pollard : 1935 Requested By: Erum Johns Order Number: [id number] MD: Aime Ruby Measurements Intervals [place] Rate: 60 P: 0 ME: 76 QRS: -80 QRSD: 105 T: -21 QT: 438 QTc: 438 Interpretive Statements Ventricular-paced rhythm No further analysis attempted due to paced rhythm Compared to ECG 09/29/2020 14:53:14 No significant changes Electronically Signed On 03-05-2021 7:16:53 [employer] by Aime Ruby [email or web address] <ELECTRONICALLY SIGNED> By: Aime Ruby MD, [facility] 03/05/21 07 2100 2100 Aime Ruby MD, FACC /EPI
== END 2021-03-04 22:30 ==
LOC: ER 20:18
PROVIDERS: Physician Assistant
DX: R19.7 Diarrhea, unspecified (principal); Z20.822 Contact with and (suspected) exposure to COVID-19; R53.1 Weakness; I50.9 Heart failure, unspecified; I11.0 Hypertensive heart disease with heart failure; Z98.890 Other specified postprocedural states; Z90.49 Acquired absence of other specified parts of digestive tract; Z90.89 Acquired absence of other organs; Z79.899 Other long term (current) drug therapy; Z87.891 Personal history of nicotine dependence; Z88.0 Allergy status to penicillin; Z88.1 Allergy status to other antibiotic agents

== ENCOUNTER → 2021-04-02 | Outpatient (CLI) | payer OTHER, MEDICAID ==
[~2021-04-02] MED LIST changes: +ASA81BEC PO; +CELEXA10 MG PO; +DONEPEZIL HCL 55 M1 PO; +FAMOTIDINE20 MG PO; +LOPERAMIDE2 MG PO; +MELATONIN5 MG PO
== END ==
LOC: SJCVC 14:14
PROVIDERS: ATTEND Internal Medicine
DX: R94.31 Abnormal electrocardiogram [ECG] [EKG] (principal); I42.9 Cardiomyopathy, unspecified; I50.32 Chronic diastolic (congestive) heart failure; I48.21 Permanent atrial fibrillation; E78.5 Hyperlipidemia, unspecified; I25.10 Atherosclerotic heart disease of native coronary artery without angina pectoris; I11.0 Hypertensive heart disease with heart failure; J42 Unspecified chronic bronchitis; Z79.01 Long term (current) use of anticoagulants; Z95.810 Presence of automatic (implantable) cardiac defibrillator; Z87.891 Personal history of nicotine dependence; Z88.0 Allergy status to penicillin; Z88.8 Allergy status to other drugs, medicaments and biological substances; Z79.82 Long term (current) use of aspirin; Z79.899 Other long term (current) drug therapy; Z88.1 Allergy status to other antibiotic agents; Z51.81 Encounter for therapeutic drug level monitoring; Z86.16 Personal history of COVID-19